=== PATIENT | male | born 1945 | race Caucasian/White ===

== ENCOUNTER → 2024-05-10 | Outpatient (CLI) | payer MEDICARE, BC, SELFPAY ==
[2024-05-10 16:03] LABS: Collection Type, Urine Clean Catch; Squamous Epithelial Cell,Urine 0 /hpf (0-5)
[2024-05-10 16:44] LABS: Bacteria,Urine 1+; Bilirubin,Urine Negative (Negative); Blood,Urine Trace (Negative); Color,Urine Lt-Yellow (Lt Yel-Yel); Glucose, Urine Negative (Negative); Ketones,Urine Negative (Negative); Leukocyte Esterase,Urine Positive (Negative); Nitrite,Urine Negative (Negative); Protein,Urine Negative (Neg - Trace); RBC,Urine 22 /hpf (0-3); Urobilinogen,Urine Negative mg/dL (0.0-1.0); WBC,Urine 795 /hpf (0-5)
[2024-05-10 17:27] LABS: Clarity,Urine Hazy (Clear/Hazy)
== END | disposition home or self-care (01) ==
LOC: SLDO 15:58
PROVIDERS: PCP Nurse Practitioner Family; Referring Provider Nurse Practitioner Family; Visit Provider Nurse Practitioner Family
DX: N30.00 Acute cystitis without hematuria (principal); N41.0 Acute prostatitis
CPT/HCPCS: 81001; 87086

== ENCOUNTER → 2024-05-25 | Outpatient (CLI) | payer MEDICARE, BC, SELFPAY ==
[2024-05-25 14:27] LABS: Ferritin 87 ng/mL (10.5-307.3)
[2024-05-25 14:36] LABS: Iron 71 mcg/dL (65-175)
== END | disposition home or self-care (01) ==
LOC: COPL 12:00
PROVIDERS: PCP Physician Assistant; Referring Provider Physician Assistant; Visit Provider Physician Assistant
DX: D64.9 Anemia, unspecified (principal)
CPT/HCPCS: 36415; 82728; 83540; 85025

== ENCOUNTER → 2024-05-26 | Outpatient (CLI) | payer MEDICARE, BC, SELFPAY ==
[2024-05-26 15:35] LABS: Basophils # (Auto) 0.1 Thou/mm3 (0.0-0.2); Basophils % (Auto) 1 % (0-2.5); Eosinophils # (Auto) 0.4 Thou/mm3 (0.0-0.5); Eosinophils % (Auto) 6 % (0-10); Hematocrit 35.6 % (41.0-53.0); Hemoglobin 11.6 g/dL (13.5-16.0); Immature Granulocytes % (Auto) 0 % (0-0); Immature Granulocytes Auto 0.02 Thou/mm3 (0.00-0.00); Lymphocytes % (Auto) 15 % (10-50); Mean Corpuscular HGB Conc 32.6 g/dl (31.0-37.0); Mean Corpuscular Hemoglobin 29.3 pg (25.0-35.0); Mean Corpuscular Volume 90 fL (80-100); Monocytes # (Auto) 0.6 Thou/mm3 (0.0-0.8); Monocytes % (Auto) 9 % (0-12); Neutrophils # (Auto) 4.5 Thou/mm3 (1.8-7.7); Neutrophils % (Auto) 69 % (37-80); Nucleated Red Blood Cell % 0 /100 WBC (0); Platelet Count 212 Thou/mm3 (140-440); RDW Standard Deviation 46.3 fL (35.1-43.9); Red Blood Count 3.96 Miln/mm3 (4.50-5.90); White Blood Count 6.6 Thou/mm3 (3.8-10.6)
[2024-05-26 16:37] LABS: Path Review Blood Smear Sent to Pathologist
== END | disposition home or self-care (01) ==
LOC: COPL 14:08
PROVIDERS: PCP Family Medicine; Referring Provider Physician Assistant; Visit Provider Physician Assistant
DX: D64.9 Anemia, unspecified (principal)
CPT/HCPCS: 36415; 85025

== ENCOUNTER → 2024-06-06 | Outpatient (CLI) | payer MEDICARE, BC, SELFPAY ==
[2024-06-06 15:57] LABS: Collection Type, Urine Clean Catch; Squamous Epithelial Cell,Urine 0 /hpf (0-5)
[2024-06-06 17:58] LABS: Bilirubin,Urine Negative (Negative); Blood,Urine Negative (Negative); Clarity,Urine Clear (Clear/Hazy); Color,Urine Colorless (Lt Yel-Yel); Glucose, Urine Negative (Negative); Ketones,Urine Negative (Negative); Leukocyte Esterase,Urine Negative (Negative); Nitrite,Urine Negative (Negative); PH,Urine 7.5 (5.0-7.0); Protein,Urine Negative (Neg - Trace); RBC,Urine < 1 /hpf (0-3); Specific Gravity,Urine 1.007 (1.001-1.035); Urobilinogen,Urine Negative mg/dL (0.0-1.0); WBC,Urine 1 /hpf (0-5)
== END | disposition home or self-care (01) ==
LOC: SLDO 15:37
PROVIDERS: PCP Physician Assistant; Referring Provider Physician Assistant; Visit Provider Physician Assistant
DX: N41.0 Acute prostatitis (principal)
CPT/HCPCS: 81001; 87086

== ENCOUNTER 2024-06-30 07:20 | Day surgery (SDC) | payer MEDICARE, BC, SELFPAY ==
[2024-06-30] VITALS (8 sets, daily range): BP systolic 96–143; BP diastolic 69–90; PULSE 45–67; RESP 12–18; TEMP 36.2–36.7; O2SAT 95–98; BMI 23.0
[2024-06-30] MEDS: DiphenhydrAMINE INJ 50 MG/ML VIAL 25 MG IV (09:15)
[2024-06-30] MEDS: MIDAZOLAM INJ 1 MG/ML VIAL 2 ML (ASD USE ONLY) 2 MG IV (09:18)
[2024-06-30] MEDS: fentaNYL CIT INJ 50 mCg/ML AMP 2ML (ASD USE ONLY) IV (09:18)
[2024-06-30] MEDS: ONDANSETRON INJ 2 MG/ML INJ 2 ML 4 MG IV (09:23)
--- NOTE | 2024-06-30 10:18 | SUR.PHASEII ---
0932: Pt received for recovery. Report from Lynne HORAN. Pt groggy. Is arousable but unable to remain awake. Resp even, unlabored. VS stable. No c/o pain, discomfort. 1000: Pt more alert. Sitting up tolerating po fluids with no difficulty swallowing and no n/v. 1005: Resp even, unlabored. VS stable. Denies pain. Assisted to restroom. Ambulation steady. 1021: Pt dressed and in transport chair. Pt and stated understanding of discharge instructions. Pt discharged from [facility] in stable condition.
== END 2024-06-30 10:21 | disposition home or self-care (01) ==
PROVIDERS: PCP Family Medicine; Referring Provider Specialist; Visit Provider Specialist
PROC: 0DBE8ZX Excision of Large Intestine, Via Natural or Artificial Opening Endoscopic, Diagnostic (ICD-10-PCS; CPT 45380; principal; 2024-06-30 08:30)
DX: D12.8 Benign neoplasm of rectum (principal); K62.89 Other specified diseases of anus and rectum
CPT/HCPCS: 45380; A4649; J1200; J2250; J2405; J3010

== ENCOUNTER → 2024-12-14 | Outpatient (CLI) | payer MEDICARE, BC, SELFPAY ==
[2024-12-14 14:35] LABS: Collection Type, Urine Clean Catch; Squamous Epithelial Cell,Urine 0 /hpf (0-5)
[2024-12-14 16:39] LABS: Bacteria,Urine 2+; Bilirubin,Urine Negative (Negative); Blood,Urine 2+ (Negative); Color,Urine Yellow (Lt Yel-Yel); Glucose, Urine Negative (Negative); Ketones,Urine Negative (Negative); Leukocyte Esterase,Urine Positive (Negative); Nitrite,Urine Positive (Negative); PH,Urine 5.5 (5.0-7.0); Protein,Urine 1+ (Neg - Trace); RBC,Urine 54 /hpf (0-3); Specific Gravity,Urine 1.016 (1.001-1.035); Urobilinogen,Urine Negative mg/dL (0.0-1.0); WBC,Urine 1266 /hpf (0-5)
[2024-12-14 17:13] LABS: Clarity,Urine Cloudy (Clear/Hazy)
== END | disposition home or self-care (01) ==
LOC: SLDO 14:25
PROVIDERS: PCP Family Medicine; Referring Provider Nurse Practitioner Family; Visit Provider Nurse Practitioner Family
DX: N39.0 Urinary tract infection, site not specified (principal)
CPT/HCPCS: 81001; 87077; 87086; 87186

== ENCOUNTER 2024-12-27 14:13 | Inpatient (IN) | payer MEDICARE, BC, SELFPAY ==
[2024-12-27 14:53] VITALS: BP 92/60; PULSE 137; RESP 18; TEMP 38.2; O2SAT 96; BMI 23.2
--- NOTE | 2024-12-27 15:09 | PC.NURSE ---
dr. torres informed about FSBS down trending and now 83. No new orders
--- NOTE | 2024-12-27 15:11 | EDNOTE_ITS ---
<Statement entered by Lu Anderson MD - 12/29/24 18:57> As co-signing physician, I was present and available for consult prn. I concur with the plan and care as documented by the midlevel provider. ED Male Genitalurinary RME/HPI General Chief complaint: Urogenital-Male Stated complaint: UTI, fever, vomiting Time Seen by Provider: 12/27/24 14:57 Arrival date/time: 12/27/24 14:13 RME / HPI RME / HPI Narrative: 79-year-old male patient with no significant medical history, came in for evaluation regarding fever. Patient is having fever on and off for the last few days, and this morning was having violent chills according to him. Patient was also noted to be diaphoretic. Patient is being having problem with UTI, already feeling this 1 status of antibiotic last week, and was currently started on a n ew antibiotic 3 days ago. Patient also complained of nonproductive cough, chest pain and coughing. Denies any other complaints sepsis alert was initiated right away due to fever and tachycardia. Related Data Home Medications ?Medication ?Instructions ?Recorded ?Confirmed No Known Home Medications 06/30/2406/05 Allergies Allergy/AdvReac Type Severity Reaction Status Date / Time No Known Allergies Allergy Verified 12/27/24 14:19 Review of Systems Review of Systems Narrative Review of Systems: Review of system reviewed and within normal limits except mentioned in HPI ED Exam Narrative Physical exam: VITAL SIGNS: Reviewed. GENERAL APPEARANCE: Alert and interactive, follows commands, no acute distress, HEAD AND FACE: Non-traumatic. ENT: PERRL, pink conjunctivitis, eyelid no trauma, Mucous membrane moist. NECK: Supple, nontender, no nuchal rigidity. CHEST: No tenderness, no crepitus, no paradoxical movement, no retractions. LUNGS: Clear, well ventilated, symmetric, no rales, no wheezing, no ronchi, no stridor, good breath sounds bilaterally. HEART: Regular rate, regular rhythm, no murmur, no gallops. ABDOMEN: Soft, positive bowel sounds, nondistended, no guarding, nontender, no rebound, no masses, RECTAL: Deferred. GENITAL: Deferred. NEUROLOGICAL: Gross motor function intact sensory function intact, Appropriate for age. MUSCULOSKELETAL: low back nontender, full range of motion. EXTREMITIES: Nontender, full range of motion. SKIN: Color pink, dry, no rash, no lacerations, no abrasions, no contusions. LYMPHATICS: Deferred. Course Quality Measures none Orders Category Date Time Status Admit to Inpatient Status Routine Admission 12/27/24 20:25 Active Patient Condition Routine Admission 12/27/24 20:25 Ordered Bladder Scan NEEDED Care 12/27/24 20:33 Active COVID-19 Screening Questionnaire NOW Care 12/27/24 19:51 Active Continuous Pulse Oximetry NOW Care 12/27/24 20:25 Completed Decision to Admit X1 Care 12/27/24 19:51 Completed Flu & Pneumonia Vaccine Screen ONCE Care 12/27/24 20:27 Active In and Out Catheter X1 Care 12/27/24 20:25 Active Insert IV NOW Care 12/27/24 15:05 Active Notify provider NEEDED Care 12/27/24 20:25 Active Sequential Compression Device QSHIFT Care 12/27/24 20:27 Active Straight [In and Out Catheter] NEEDED Care 12/27/24 20:33 Active Strain urine for calculus ONCE Care 12/27/24 20:36 Active Diet Regular Diet 12/28/[address] abdomen pelvis wo con Stat Exams 12/27/24 15:12 Completed XR chest 1V Stat Exams 12/27/24 15:12 Completed Blood Culture (Lab) Stat Lab 12/27/24 15:29 Received CBC AM DRAW Lab 12/28/24 05:00 Ordered CBC AM DRAW Lab 12/29/24 05:00 Ordered CBC AM DRAW Lab 12/30/24 05:00 Ordered CBC Stat Lab 12/27/24 15:34 Completed COVID-19 Antigen (In-House) Stat Lab 12/27/24 Ordered Comprehensive Metabolic Panel AM DRAW Lab 12/28/24 05:00 Ordered Comprehensive Metabolic Panel AM DRAW Lab 12/29/24 05:00 Ordered Comprehensive Metabolic Panel AM DRAW Lab 12/30/24 05:00 Ordered Comprehensive Metabolic Panel Stat Lab 12/27/24 15:34 Completed Lactate (Lactic Acid) Stat Lab 12/27/24 15:34 Completed Lipase Stat Lab 12/27/24 15:34 Completed Magnesium AM DRAW Lab 12/28/24 05:00 Ordered Magnesium AM DRAW Lab 12/29/24 05:00 Ordered Magnesium AM DRAW Lab 12/30/24 05:00 Ordered Phosphorous AM DRAW Lab 12/28/24 05:00 Ordered Phosphorous AM DRAW Lab 12/29/24 05:00 Ordered Phosphorous AM DRAW Lab 12/30/24 05:00 Ordered Procalcitonin Stat Lab 12/27/24 15:34 Completed Urinalysis Stat Lab 12/27/24 16:10 Completed Urine Culture Stat Lab 12/27/24 16:10 Received Acetaminophen Tab [Tylenol ES Tab] Med 12/27/24 15:12 Discontinued 1,000 mg PO X1 ONE Acetaminophen Tab [Tylenol Tab] Med 12/27/24 20:27 Active 1,000 mg PO Q6H PRN Acetaminophen Tab [Tylenol Tab] Med 12/27/24 20:27 Active 650 mg PO Q6H PRN Ondansetron Inj [Zofran Inj] Med 12/27/24 20:27 Active 4 mg IVP Q6H PRN Piper/Tazo 3.375 gm Premix [Zosyn] Med 12/28/24 06:00 Active 3.375 gm in 50 ml IV Q8HR Piper/Tazo 3.375 gm Premix [Zosyn] Med 12/27/24 20:45 Active 3.375 gm in 50 ml IV X1 Ringers Lactated 1000 ml [Lactated Ringers] 1,000 ml Med 12/27/24 20:30 Active IV 125 mls/hr Sodium Chloride 0.9% 1000 ml [Ns] 1,000 ml Med 12/27/24 15:04 Discontinued IV 999 mls/hr Tamsulosin HCl [Flomax] Med 12/28/24 09:00 Active 0.4 mg PO QDAY cefTRIAXone/D5w 1gm IV premix [Rocephin/D5w 1gm IV Med 12/27/24 15:14 Dis continued premix] 1 gm in 50 ml IV X1 Code Status Routine Oth 12/27/24 20:25 Ordered Oxygen Delivery DAILY RT 12/27/24 20:26 Active Vital Signs Vital signs: Vital Signs Temperature 100.7 F H 12/27/24 14:53 Pulse Rate 137 H 12/27/24 14:53 Respiratory Rate 18 12/27/24 14:53 Blood Pressure 92/60 12/27/24 14:53 Pulse Oximetry (%) 96 12/27/24 14:53 Oxygen Delivery Method Room Air 12/27/24 14:53 Urogenital - Male MDM Narrative MDM Narrative:: 79-year-old male patient with no significant medical history, came in for evaluation regarding fever. Patient is having fever on and off for the last few days, and this morning was having violent chills according to him. Patient was also noted to be diaphoretic. Patient is being having problem with UTI, already feeling this 1 status of antibiotic last week, and was currently started on a new antibiotic 3 days ago. Patient also complained of nonproductive cough, chest pain and coughing. Denies any other complaints sepsis alert was initiated right away due to fever and tachycardia. Sepsis alert was initiated right away. Laboratory workup significant for UTI. Slight leukocytosis, creatinine 1.4 Pro-Bryce 0.97 chest x-ray came back unremarkable. CT scan of the abdomen pelvis showed Bilateral nonobstructing renal calculi Left urinary tract infection, cystitis pattern Patient received IV fluids, IV ceftriaxone. Patient is to be admitted for failed antibiotic treatment and sepsis secondary to UTI Patient data External records reviewed:: None Clinical information provided by:: patient and family Social determinants that could affect healthcare access:: none Patient has the following chronic illnesses:: History of chronic self-catheterization due to BPH How is presenting disease/condition affected by chronic disease/condition?: exacerbated by Evaluation data The following diagnostics were reviewed and interpreted by me:: lab results and radiology exam(s) Lab and/or radiology exams considered but not ordered:: None Interpretation Summary: See results [facility] Medications / Prescriptions Medications or Prescriptions considered but not ordered:: None Medication administrations:: Medication Administration History Acetaminophen (Acetaminophen 325 Mg Tablet) 650 mg PO Q6H PRN PRN Reason: Fever >100.4 Stop: 01/26/25 20:26 Acetaminophen (Acetaminophen 325 Mg Tablet) 1,000 mg PO Q6H PRN PRN Reason: PAIN SCALE 1-3 (mild Stop: 01/26/25 20:26 Lactated Ringer's (Lactated Ringers) 1,000 mls @ 125 mls/hr IV .Q8H KRYSTIN Stop: 12/28/24 04:29 Piperacillin/Tazobactam/Dextrose (Zosyn) 3.375 gm in 50 mls @ 12.5 mls/hr IV Q8HR KRYSTIN Stop: 01/04/25 05:59 Piperacillin/Tazobactam/Dextrose (Zosyn) 3.375 gm in 50 mls @ 100 mls/hr IV X1 ONE Stop: 12/27/24 21:14 Ondansetron HCl (Ondansetron Inj 2 Mg/Ml Inj 2 Ml) 4 mg IVP Q6H PRN; Protocol PRN Reason: NAUSEA OR VOMITING Stop: 01/26/25 20:26 Tamsulosin HCl (Tamsulosin Hcl 0.4 Mg Capsule) 0.4 mg PO QDAY KRYSTIN Stop: 01/27/25 08:59 Discontinued Medications Acetaminophen (Acetaminophen 500 Mg Tablet) 1,000 mg PO X1 ONE Stop: 12/27/24 15:13 Last Admin: 12/27/24 16:06 Dose: 1,000 mg Documented By: Sodium Chloride (Ns) 1,000 mls @ 999 mls/hr IV .Q1H1M ONE Stop: 12/27/24 16:04 Last Infusion: 12/27/24 20:30 Dose: Infused Documented By: Admin: 12/27/24 19:29 Dose: 999 mls/hr Documented By: EF Ceftriaxone Sodium/Dextrose (Rocephin/D5w 1gm Iv Premix) 1 gm in 50 mls @ 100 mls/hr IV X1 ONE Stop: 12/27/24 15:43 Last Infusion: 12/27/24 20:00 Dose: Infused Documented By: Admin: 12/27/24 19:30 Dose: 100 mls/hr Documented By: EF Ceftriaxone IM, Tylenol and IV fluids Consultations Consultation(s) initiated? (list below): No Diagnosis Urogenital Male Differential Diagnosis: urinary tract infection and other (Sepsis secondary to UTI) Most likely diagnosis given after review of the tests above:: Sepsis secondary to UTI, failed antibiotic treatment Admission Indicated Admission indicated?: indicated Admission Request Was there a request for admission?: Yes Admission Attestation Admission request attestation: Discussed case with Hospitalist service regarding admission. Discussed patients ED course, exam findings, labs, and radiology results. The Hospitalist [agrees] to accept the patient for admission. Disposition Plan Disposition Plan: Admit Discharge Plan Plan Patient Disposition: Admit Acute Care w/in Hospital Discharge Disposition comment: stable Prescriptions/Referrals Prescriptions/Med Rec: No Action No Known Home Medications Referrals: Janeth Meadows MD [Primary Care Provider] - In 1 week Problem List Clinical Impression: Sepsis, Urinary tract infection Patient/Caregiver Discharge Instructions Print Language: [place] Stand Alone Forms: Paty Award Info., Patient Portal Info Letter
--- NOTE | 2024-12-27 15:12 | XR_ITS ---
Examination: CT abdomen and pelvis without contrast. Coronal 3-D reconstructions. Sagittal 2-D reconstructions. Date and time of exam:December 27, 2024 1520 hours Comparison May 11, 2021 INDICATIONS: Lower abdominal pain fever chills beginning 2 days ago CTDI: vol (mGy): 6.67 DLP: (mGycm): 125 Technique: Axial images of the abdomen have been obtained, 3 mm slice thickness Intravenous contrast material has not been administered. Low dose protocols were performed. One or more of the following dose reduction techniques were used; automated exposure control, adjustment of the mA and/or KV according to patient size, use of iterative reconstruction technique. Findings: Mild pneumonia right base No focal liver or splenic lesions No gallstones No pancreatic or adrenal mass 1 to 3 mm bilateral renal calculi Minimal thickening of the left pelvicalyceal system and proximal left ureter, no ureteral calculi No bowel obstruction Aorta normal size No pericecal inflammatory change Bladder wall shows irregular thickening up to 5 mm AP prostate dimension 5 cm IMPRESSION: Bilateral nonobstructing renal calculi Left urinary tract infection, cystitis pattern
--- NOTE | 2024-12-27 15:12 | XR_ITS ---
Examination: PA chest single view TECHNIQUE: Upright PA chest single view Date and time: December 27, 2024 1523 hours Comparison May 10, 2021 INDICATIONS: Fever coughing chest pain today. FINDINGS: Mild prominence left ventricle No lobar pneumonia or pulmonary edema Intact osseous structures old deformity left clavicle IMPRESSION: No pneumonia or pulmonary edema
[2024-12-27 15:39] LABS: Lactate (Lactic Acid) 1.2 mMol/L (0.4-2.0)
[2024-12-27 15:41] LABS: Basophils % (Auto) 0 % (0-2.5); Eosinophils % (Auto) 0 % (0-10); Hematocrit 41.2 % (41.0-53.0); Hemoglobin 13.9 g/dL (13.5-16.0); Immature Granulocytes % (Auto) 0 % (0-0); Immature Granulocytes Auto 0.03 Thou/mm3 (0.00-0.00); Lymphocytes # (Auto) 0.7 Thou/mm3 (1.0-4.8); Lymphocytes % (Auto) 6 % (10-50); Mean Corpuscular HGB Conc 33.7 g/dl (31.0-37.0); Mean Corpuscular Hemoglobin 27.4 pg (25.0-35.0); Mean Corpuscular Volume 81 fL (80-100); Monocytes # (Auto) 1.1 Thou/mm3 (0.0-0.8); Monocytes % (Auto) 10 % (0-12); Neutrophils # (Auto) 9.1 Thou/mm3 (1.8-7.7); Neutrophils % (Auto) 83 % (37-80); Nucleated Red Blood Cell % 0 /100 WBC (0); Platelet Count 255 Thou/mm3 (140-440); RDW Standard Deviation 41.9 fL (35.1-43.9); Red Blood Count 5.08 Miln/mm3 (4.50-5.90); White Blood Count 10.9 Thou/mm3 (3.8-10.6)
[2024-12-27 16:06] VITALS: TEMP 38.2
[2024-12-27] MEDS: ACETAMINOPHEN 500 MG TABLET 1000 MG PO (16:06)
[2024-12-27 16:07] LABS: Alanine Aminotransferase 15 U/L (10-49); Albumin, Serum 3.8 gm/dL (3.4-4.8); Albumin/Globulin Ratio 1.4 (1.2-2.2); Alkaline Phosphatase 65 U/L (46-116); Anion Gap 7 (7-16); Aspartate Amino Transferase 17 U/L (0-34); BUN/Creatinine Ratio 11 Ratio (12-20); Bilirubin,Total 0.6 mg/dL (0.3-1.2); Blood Urea Nitrogen 16 mg/dL (9-23); Calcium 8.9 mg/dL (8.3-10.6); Calcium (Corrected) 9.1 mg/dL (8.5-10.1); Carbon Dioxide 26.8 mMol/L (20.0-31.0); Chloride 104 mMol/L (98-107); Creatinine (Component) 1.4 mg/dL (0.6-1.3); Estimated Creatinine Clearance 46.3 mL/min (>60); Globulin 2.8 gm/dL (2.3-3.5); Glucose 124 mg/dL (74-106); Lipase 35 U/L (12-53); Osmolality,Calculated 277 (275-295); Potassium 4.3 mMol/L (3.4-5.1); Procalcitonin 0.97 ng/ml (0.0-0.49); Sodium 138 mMol/L (136-145); Total Protein 6.6 gm/dL (5.7-8.2); eGFR 51 See Note
[2024-12-27 16:15] LABS: Collection Type, Urine Clean Catch; Squamous Epithelial Cell,Urine 0 /hpf (0-5)
[2024-12-27 16:24] LABS: Bacteria,Urine Rare; Bilirubin,Urine Negative (Negative); Blood,Urine Negative (Negative); Color,Urine Yellow (Lt Yel-Yel); Glucose, Urine Negative (Negative); Ketones,Urine Negative (Negative); Leukocyte Esterase,Urine Positive (Negative); Nitrite,Urine Negative (Negative); Protein,Urine Trace (Neg - Trace); RBC,Urine 7 /hpf (0-3); Specific Gravity,Urine 1.013 (1.001-1.035); Urobilinogen,Urine Negative mg/dL (0.0-1.0); WBC,Urine 138 /hpf (0-5)
[2024-12-27 17:00] LABS: Clarity,Urine Hazy (Clear/Hazy)
[2024-12-27 19:22] VITALS: BP 109/79; PULSE 95; RESP 17; TEMP 36.7; O2SAT 96
[2024-12-27] MEDS: SODIUM CHLORIDE 0.9% 1000 ML 1,000 ML 999 ML IV (19:29)
[2024-12-27 19:30] VITALS: TEMP 36.6
[2024-12-27] MEDS: cefTRIAXone/D5w 1gm IV premix 1 GM/50 ML BAG IV (19:30)
--- NOTE | 2024-12-27 20:37 | PD.RESHP ---
Documentation for date of: 12/27/24 HPI History of Present Illness Chief complaint: UTI History of present illness: 79-year-old male with no past medical history who presents to the ED due to fevers and chills. Patient states that around 2 weeks ago he started developing low-grade fevers and burning sensation with urination and urinary hesitancy went to his PCP and they gave him a 1 week course of antibiotics. After that patient states burning sensation and urinary symptoms resolved however patient continued to felt weak and continued to develop fevers and went us saw his PCP again yesterday and was given Bactrim. He took 1 dose this morning and said he continued to develop fevers and chills and decided to come to the ER. Patient attributes his fevers and chills now to that 1 dose he took of Bactrim was also worried about an allergic reaction as prior to taking the Bactrim he states his fevers had improved somewhat. Patient also endorses that he is incontinent and usually does straight In-N-Out catheterization at home. He denies any abdominal pain or flank pain. At this time patient denies headache, blurry vision, nausea, vomiting, diarrhea, abdominal pain, flank pain shortness of breath, chest pain. ED course: ED vitals: BP 92/60, HR 137, temperature 100.7 ?F, saturating 96% on room air ED labs: Mild leukocytosis, creatinine 1.4, glucose 124, procalcitonin 0.97, UA shows positive leukocyte esterase, 138 with WBCs, 7 RBCs, rare bacteria CT abdomen pelvis shows bilateral nonobstructing renal calculi 1-3 mm, left urinary tract infection, cystitis pattern Chest x-ray shows no pneumonia or pulmonary edema, in the ED patient received Rocephin, 1 L NS bolus, Zofran, Tylenol PMHx: As above SX Hx: None Social Hx: Denies cigarette use, denies alcohol use, denies illicit substances although patient does endorse taking THC Gummies every 1 to 2 days FH X: Unknown Review of Systems Review of Systems Systems Reviewed: All systems reviewed, normal except as documented Narrative Review of Systems: All 12 systems reviewed and found negative unless otherwise stated in the HPI. Exam Vital Signs Temp Pulse Resp BP Pulse Ox O2 Del Method 98 F 95 17 109/79 96 Room Air 12/27/24 19:30 12/27/24 19:22 12/27/24 19:22 12/27/24 19:22 12/27/24 19:22 12/27/24 19:22 Narrative Exam Physical Exam GENERAL: NAD, AAOx3 HEENT: Moist mucosa. Eyes open, symmetrical, & clear CARDIO: Heart RRR, no obvious murmurs PULM: No noted coughing/dyspnea CTA B/L, no R/W/R GI: Abdomen soft, distended, no pain on palpation. BSx4 (-)CVA tenderness SKIN/MSK/EXT: No wounds/rashes/edema/amputations, no pain on palpation. Pedal pulses present B/L NEURO: AAOx3, no focal neuro deficits, able to move all 4 extremities Results: Labs 12/27/24 15:34 12/27/24 15:34 Labs: Short CBC 12/27/24 Range/Units 15:34 WBC 10.9 H (3.8-10.6) Thou/mm3 Hgb 13.9 (13.5-16.0) g/dL Hct 41.2 (41.0-53.0) % Plt Count 255 (140-440) Thou/mm3 BMP 12/27/24 15:34 Sodium 138 Potassium 4.3 Chloride 104 Carbon Dioxide 26.8 BUN 16 Creatinine 1.4 H Glucose 124 H Calcium 8.9 Liver Function 12/27/24 Range/Units 15:34 Total Bilirubin 0.6 (0.3-1.2) mg/dL AST 17 (0-34) U/L ALT 15 (10-49) U/L Alkaline Phosphatase 65 (46-116) U/L Albumin 3.8 (3.4-4.8) gm/dL Urine 12/27/24 Range/Units 16:10 Urine Color Yellow (Lt Yel-Yel) Urine Clarity Hazy (Clear/Hazy) Urine pH 8.0 H (5.0-7.0) Ur Specific [place] 1.013 (1.001-1.035) Urine Protein Trace (Neg - Trace) Urine Glucose (UA) Negative (Negative) Quality Measures Quality Measures none Advance care planning discussed with:: patient Medications Home Medications and Allergies Home Medications ?Medication ?Instructions ?Recorded ?Confirmed ?Type No Known Home Medications 06/30/24 06/30/24 History Allergies Allergy/AdvReac Type Severity Reaction Status Date / Time No Known Allergies Allergy Verified 12/27/24 14:19 Visit Medications Acetaminophen (Acetaminophen 325 Mg Tablet) 650 mg PO Q6H PRN PRN Reason: Fever >100.4 Stop: 01/26/25 20:26 Acetaminophen (Acetaminophen 325 Mg Tablet) 1,000 mg PO Q6H PRN PRN Reason: PAIN SCALE 1-3 (mild Stop: 01/26/25 20:26 Lactated Ringer's (Lactated Ringers) 1,000 mls @ 125 mls/hr IV .Q8H KRYSTIN Stop: 12/28/24 04:29 Piperacillin/Tazobactam/Dextrose (Zosyn) 50 mls @ 100 mls/hr IV Q8HR KRYSTIN Stop: 01/03/25 20:32 Ondansetron HCl (Ondansetron Inj 2 Mg/Ml Inj 2 Ml) 4 mg IVP Q6H PRN; Protocol PRN Reason: NAUSEA OR VOMITING Stop: 01/26/25 20:26 Discontinued Medications Acetaminophen (Acetaminophen 500 Mg Tablet) 1,000 mg PO X1 ONE Stop: 12/27/24 15:13 Last Admin: 12/27/24 16:06 Dose: 1,000 mg Sodium Chloride (Ns) 1,000 mls @ 999 mls/hr IV .Q1H1M ONE Stop: 12/27/24 16:04 Last Admin: 12/27/24 19:29 Dose: 999 mls/hr Ceftriaxone Sodium/Dextrose (Rocephin/D5w 1gm Iv Premix) 1 gm in 50 mls @ 100 mls/hr IV X1 ONE Stop: 12/27/24 15:43 Last Admin: 12/27/24 19:30 Dose: 100 mls/hr Assessment & Plan Plan 79-year-old male with past medical history as stated above who presented to the ED due to fevers and chills. Patient will be admitted for management of UTI after failing outpatient therapy. #Acute complicated urinary tract infection Patient had approximately 2 weeks ago burning sensation with urination went to his PCP was given a 1 week course of antibiotic therapy which she completed however he continued to present with fevers and went to his PCP again and was given another course of antibiotics took only 1 dose but continued to present with fever so decided to come to the ER. He denies any flank pain, urinary symptoms at this time,urinary urgency or frequency, difficulty urinating, penile pain, or testicular pain, hematuria and on physical exam has negative CVA tenderness or abdominal pain Patient attributes his fevers and chills now to that 1 dose he took of Bactrim he was also worried about an allergic reaction as prior to taking the Bactrim he states his fevers had been improving somewhat Patient states at home he straight caths himself as he states he is incontinent UA positive for UTI, CT abdomen pelvis shows Bilateral nonobstructing renal calculi 1-3mm, Left urinary tract infection, cystitis pattern Stones are less than 5 mm and are nonobstructing, they should spontaneously pass, per up-to-date ? On Zosyn (12/27?) ? Follow-up blood cultures ? Follow-up urine cultures ? IV fluids lactated Ringer's @ 125 cc/h ? Pain control ? Tamsulosin ? Bladder scans as needed as well as straight In-N-Out caths #Acute Kidney injury Baseline creatinine ~0.8?1.0, current creatinine 1.4 ? on IVF ? Avoid nephrotoxins ? Renally dose medications Health Maintenance: Disposition: MedSurg, on IV antibiotics Fluids: LR Feeding: Regular (vegetarian) Thrombo prophylaxis: SCDs Gastric Ulcer prophylaxis: Not indicated CODE STATUS: DNR Case discussed with my attending Dr. Luis Fernando Hudson MD PGY-1 Disclaimer: Despite multiple revisions, due to the dictation software being used, the document bellow may not be free of grammatical errors including phonetic/typographic errors. However, this does not deter from our commitment to providing health care in the patient's best interest in mind. Attending Provider Attestation/Addendum I discussed with and supervised the resident physician who took care of this patient. I agree with the assessment and plan as above. Patient admitted for fever chills, urinary symptoms. The patient has nonobstructing ureteral stones. Previous urine culture grew E. coli. Patient will be admitted for antibiotic treatment. Check culture results.
[2024-12-27 20:53] VITALS: BP 122/90; PULSE 85; PULSE 91; RESP 100; RESP 16; RESP 19; O2SAT 100
[2024-12-27] MEDS: PIPER/TAZO 3.375 GM PREMIX 3.375 GM/50 ML BAG IV (21:02)
[2024-12-27] MEDS: TAMSULOSIN HCL 0.4 MG CAPSULE PO (21:26)
[2024-12-27] MEDS: RINGERS LACTATED 1000 ML 1,000 ML 125 ML IV (21:26)
[2024-12-27 21:37] LABS: COVID-19 Antigen (In-House) Negative (Negative)
[2024-12-27 22:48] VITALS: BMI 23.8
[2024-12-28] VITALS (12 sets, daily range): BP systolic 107–127; BP diastolic 79–98; PULSE 79–111; RESP 16–97; TEMP 36.1–37; O2SAT 94–95
[2024-12-28] MEDS: PIPER/TAZO 3.375 GM PREMIX 3.375 GM/50 ML BAG IV ×3 (05:57→21:10)
[2024-12-28 06:02] LABS: Basophils % (Auto) 1 % (0-2.5); Eosinophils # (Auto) 0.1 Thou/mm3 (0.0-0.5); Eosinophils % (Auto) 2 % (0-10); Hematocrit 36.5 % (41.0-53.0); Hemoglobin 12.4 g/dL (13.5-16.0); Immature Granulocytes % (Auto) 0 % (0-0); Immature Granulocytes Auto 0.02 Thou/mm3 (0.00-0.00); Lymphocytes # (Auto) 0.7 Thou/mm3 (1.0-4.8); Lymphocytes % (Auto) 9 % (10-50); Mean Corpuscular Hemoglobin 27.9 pg (25.0-35.0); Mean Corpuscular Volume 82 fL (80-100); Monocytes % (Auto) 14 % (0-12); Neutrophils # (Auto) 5.3 Thou/mm3 (1.8-7.7); Neutrophils % (Auto) 74 % (37-80); Nucleated Red Blood Cell % 0 /100 WBC (0); Platelet Count 240 Thou/mm3 (140-440); RDW Standard Deviation 42.5 fL (35.1-43.9); Red Blood Count 4.45 Miln/mm3 (4.50-5.90); White Blood Count 7.1 Thou/mm3 (3.8-10.6)
[2024-12-28 06:29] LABS: Alanine Aminotransferase 11 U/L (10-49); Albumin, Serum 3.2 gm/dL (3.4-4.8); Albumin/Globulin Ratio 1.3 (1.2-2.2); Alkaline Phosphatase 57 U/L (46-116); Anion Gap 7 (7-16); Aspartate Amino Transferase 16 U/L (0-34); BUN/Creatinine Ratio 12 Ratio (12-20); Bilirubin,Total 0.3 mg/dL (0.3-1.2); Blood Urea Nitrogen 12 mg/dL (9-23); Calcium 7.9 mg/dL (8.3-10.6); Calcium (Corrected) 8.5 mg/dL (8.5-10.1); Carbon Dioxide 23.3 mMol/L (20.0-31.0); Chloride 111 mMol/L (98-107); Estimated Creatinine Clearance 64.8 mL/min (>60); Globulin 2.4 gm/dL (2.3-3.5); Glucose 105 mg/dL (74-106); Magnesium 1.8 mg/dL (1.6-2.6); Osmolality,Calculated 280 (275-295); Phosphorous 2.2 mg/dL (2.4-5.1); Potassium 3.8 mMol/L (3.4-5.1); Sodium 141 mMol/L (136-145); Total Protein 5.6 gm/dL (5.7-8.2); eGFR > 60 See Note
--- NOTE | 2024-12-28 07:58 | EKG_ITS ---
[facility] Test Date: 2024-12-28 Pat Name: SACHIN MANN [facility] Contract Lead: DELBERT : 1945 Requested By: Markos Calloway Order Number: [id number] Reading MD: Markos Calloway Measurements Intervals [place] Rate: 95 P: [place]: QRS: -53 QRSD: 119 T: 11 QT: 407 QTc: 513 Interpretive Statements ATRIAL FLUTTER/TACHYCARDIA LEFT ANTERIOR FASCICULAR BLOCK Compared to ECG 05/10/2021 21:55:26 Left anterior fascicular block now present Sinus bradycardia no longer present Intraventricular conduction delay no longer present /store/S0/[id number]
--- NOTE | 2024-12-28 09:24 | ESPR_ITS ---
<Statement entered by Jens Guzman MD - 12/29/24 07:17> I discussed with and supervised the digital intern physician involved in the care of this patient. Patient assessment and plan was discussed with entire medicine team, including my attending. I agree with the assessment and plan as documented by digital intern doctor. Patient care was discussed with my attending physician Dr. Caleb Guzman, PGY-2 Documentation for date of: 12/28/24 Subjective Subjective Interval history: No acute overnight events. Reports feeling well today. Denies fever, chills, headaches, chest pain, sob, cough, GI or urinary symptoms. Tachycardic on exam this AM. EKG ordered showing atrial-flutter with HR 18. He was upgraded to TELE for close monitoring. Cardiology Dr. Hernandez was consulted who recommended starting AMIODARONE drip protocols, and was initiated. Otherwise he stable, denied chest pain or palpitations or shortness of breath. Exam Vital Signs Temp Pulse Resp BP Pulse Ox O2 Del Method 98.6 F 82 19 107/88 H 95 Room Air 12/28/24 04:00 12/28/24 04:00 12/28/24 04:00 12/28/24 04:00 12/28/24 04:00 12/28/24 04:00 Narrative Exam GENERAL * Normal appearing adult male, NAD. HEENT * NCAT.?LIVE. Oral mucosa is moist. Patent Nares NECK * Supple, nontender, no JVD. CHEST * Tachycardic, ?irregular rhythm, no m/g/r * CTAB, no w/r/r, symmetrical expansion. ABDOMEN * Soft, flat, nontender. No guarding/rebound tenderness/masses. * Bowel sounds presents EXTREMITIES * No edema/cyanosis.? SKIN * Warm and dry, no jaundice/rashes. NEUROMUSCULAR * No lumbar or midline, no CVA, no paraspinal muscle spasm or tenderness. * Moves all 4 extremities well, with full ROM and good CSM. * MAURER x4, CN II-XII grossly intact. * No focal neurologic deficits. PSYCHIATRY * Normal mood and affect, cooperative, no SI or HI or hallucinations. Objective Labs 12/29/24 04:26 12/29/24 04:26 Labs: Laboratory Results - last 24 hr 12/27/24 12/27/24 12/27/24 15:34 16:10 21:00 WBC 10.9 H RBC 5.08 Hgb 13.9 Hct 41.2 MCV 81 MCH 27.4 MCHC 33.7 RDW Std Deviation 41.9 Plt Count 255 Neut % (Auto) 83 H Lymph % (Auto) 6 L [place] % (Auto) 10 Eos % (Auto) 0 Baso % (Auto) 0 Neut # (Auto) 9.1 H Lymph # (Auto) 0.7 L [place] # (Auto) 1.1 H Eos # (Auto) 0.0 Baso # (Auto) 0.0 Immature Gran # (Auto) 0.03 H Absolute Nucleated RBC 0.00 Immature Gran % 0 Nucleated RBC % 0 Sodium 138 Potassium 4.3 Chloride 104 Carbon Dioxide 26.8 Anion Gap 7 BUN 16 Creatinine 1.4 H Estim Creat Clear Calc 46.3 L eGFR 51 L BUN/Creatinine Ratio 11 L Glucose 124 H Calculated Osmolality 277 Lactic Acid 1.2 Calcium 8.9 Corrected Calcium 9.1 Phosphorus Magnesium Total Bilirubin 0.6 AST 17 ALT 15 Alkaline Phosphatase 65 Total Protein 6.6 Albumin 3.8 Globulin 2.8 Albumin/Globulin Ratio 1.4 Lipase 35 Procalcitonin 0.97 H Ur Collection Type Clean Catch Urine Color Yellow Urine Clarity Hazy Urine pH 8.0 H Ur Specific [place] 1.013 Urine Protein Trace Urine Glucose (UA) Negative Urine Ketones Negative Urine Blood Negative Urine Nitrite Negative Urine Bilirubin Negative Urine Urobilinogen (Auto) Negative Ur Leukocyte Esterase Positive Urine RBC 7 H Urine WBC 138 H Ur Squamous Epith Cells 0 Urine Bacteria Rare SARS-CoV-2 Ag (Rapid) Negative 12/28/24 04:39 WBC 7.1 RBC 4.45 L Hgb 12.4 L Hct 36.5 L MCV 82 MCH 27.9 MCHC 34.0 RDW Std Deviation 42.5 Plt Count 240 Neut % (Auto) 74 Lymph % (Auto) 9 L [place] % (Auto) 14 H Eos % (Auto) 2 Baso % (Auto) 1 Neut # (Auto) 5.3 Lymph # (Auto) 0.7 L [place] # (Auto) 1.0 H Eos # (Auto) 0.1 Baso # (Auto) 0.0 Immature Gran # (Auto) 0.02 H Absolute Nucleated RBC 0.00 Immature Gran % 0 Nucleated RBC % 0 Sodium 141 Potassium 3.8 D Chloride 111 H Carbon Dioxide 23.3 Anion Gap 7 BUN 12 Creatinine 1.0 Estim Creat Clear Calc 64.8 eGFR > 60 BUN/Creatinine Ratio 12 Glucose 105 Calculated Osmolality 280 Lactic Acid Calcium 7.9 L Corrected Calcium 8.5 Phosphorus 2.2 L Magnesium 1.8 Total Bilirubin 0.3 AST 16 ALT 11 Alkaline Phosphatase 57 Total Protein 5.6 L Albumin 3.2 L D Globulin 2.4 Albumin/Globulin Ratio 1.3 Lipase Procalcitonin Ur Collection Type Urine Color Urine Clarity Urine pH Ur Specific [place] Urine Protein Urine Glucose (UA) Urine Ketones Urine Blood Urine Nitrite Urine Bilirubin Urine Urobilinogen (Auto) Ur Leukocyte Esterase Urine RBC Urine WBC Ur Squamous Epith Cells Urine Bacteria SARS-CoV-2 Ag (Rapid) Quality Measures Quality Measures none Advance care planning discussed with:: patient Assessment & Plan Assessment Current Active Medications: Generic Name Dose Route Start Last Admin Trade Name Freq PRN Reason Stop Dose Admin Acetaminophen 650 mg 12/27/24 20:27 Acetaminophen 325 Mg Tablet PO 01/26/25 20:26 Q6H PRN Fever >100.4 Acetaminophen 1,000 mg 12/28/24 08:35 Acetaminophen 500 Mg Tablet PO 01/26/25 20:26 Q6H PRN PAIN SCALE 1-3 (mild Piperacillin/Tazobactam/Dextrose 3.375 gm in 50 mls @ 12.5 mls/hr 12/28/24 06:00 12/28/24 05:57 Zosyn IV 01/04/25 05:59 12.5 mls/hr Q8HR KRYSTIN Administration Potassium Phosphate 22.5 mmol/ 507.5 mls @ 82.778 mls/hr 12/28/24 07:56 Sodium Chloride IV 12/28/24 14:03 X1 ONE Amiodarone HCl/Dextrose 360 mg in 200 mls @ 33.333 mls/hr 12/28/24 09:23 Nexterone Ivpb IV 12/28/24 15:22 .Q6H ONE Amiodarone HCl/Dextrose 360 mg in 200 mls @ 16.667 mls/hr 12/28/24 15:23 Nexterone Ivpb IV 12/29/24 15:22 .Q12H KRYSTIN Ondansetron HCl 4 mg 12/27/24 20:27 Ondansetron Inj 2 Mg/Ml Inj 2 Ml IVP 01/26/25 20:26 Q6H PRN NAUSEA OR VOMITING Protocol Tamsulosin HCl 0.4 mg 12/28/24 09:00 Tamsulosin Hcl 0.4 Mg Capsule PO 01/27/25 08:59 QDAY KRYSTIN Plan 79-year-old male with no PMHx who presented to the ED due to fevers and chills. Patient will be admitted for management of UTI after failing outpatient therapy. Appreciate recommendations from cardiology team. New onset atrial flutter On admission, had a spike of, HR 137, otherwise HR was maintaining around 80?90. On exam today he was found tachycardic, rhythm felt to be irregular. EKG showed atrial flutter with HR 118. No history of tachyarrhythmia, states he is usually bradycardic with HR 40-50. Report an episode of pre-syncope/syncope 5 years ago for which he came to ED and had negative work-up. States he followed up with Dr. Wren 5 years ago but work- up has been negative. Denies excessive caffeine intake (2 cups daily), alcohol, tobacco or drug use. No utox performed. Possibly new onset A-fib RVR in settings of UTI. [id number] 2, 2.2% annual stroke risk. HASBLED 1, 3.4% risk of major bleed. ? Upgraded to telemetry ? Maintain K > 4.0 and Mg > 2.0 ? Started AMIODARONE drip protocol ? Pending further recommendations from cardiology Complicated UTI, likely GNR BPH Presenting with urinary symptoms, fever and chills after failing outpatient ABX. PCP started BACTRIM but appears he had allergic reaction with shaking and chills which is why he decided to come to ED. Previous urine culture grew E. coli, relatively al sensitive. Tmax 100.7 on presentation, currently afebrile, no leukocytosis. ? Continue home TAMSULOSIN ? Continue ZOSYN (12/28 to present) ? Pending panculture, de-escalate ABX accordingly Acute Kidney injury (resolved) CR 1.4 on presentation, baseline 0.8?1.0. Resolved with fluids. ? Renally dose meds, avoid overdiuresis and NEPHROTOXINS ? Daily CMP ? Continue IVF at 125 cc/H Electrolyte derangement Phosphorus 2.2, repleted ? Daily labs Health maintenance Diet: Cardiac diet GI prophylaxis: Not indicated DVT prophylaxis: HEPARIN subQ Antibiotics: ZOSYN CODE STATUS: DNR Disposition: Treating UTI, pending cx, pending cardio recs for arrhythmia Case was discussed with attending physician and senior resident. Markos Calloway DO PGYI This document was transcribed using voice recognition technology. Minor inaccuracies may be present. Attending Provider Attestation/Addendum Sharmila Jean DO, attest that I was physically present for the coy portions of the service and evaluated the patient with the resident and I reviewed and discussed the case with the resident and agree with the resident's findings and plans of care as documented above Patient seen and evaluated this AM. Patient states that he had been feeling unwell with fevers and chills despite taking antibiotics outpatient for his UTI. Patient denies frequent UTIs. He also denies flank pain, but endorses dysuria. Patient states he is currently feeling better, but sleepy. He denies any chest pain or palpitations. He is noted to have new onset a flutter. Will start on amio drip and consult cardiology. Patient states he had full cardiac workup done about 3 years ago and was cleared. Will f/u with cardiology recommendations and f/u with repeat blood and urine cultures. Will order echocardiogram to rule out any structural abnormalities.
[2024-12-28] MEDS: TAMSULOSIN HCL 0.4 MG CAPSULE PO (09:25)
[2024-12-28] MEDS: AMIODARONE 150 MG IVPB 150 MG/100 ML BAG 600 MG IV (09:50)
[2024-12-28] MEDS: POTASSIUM PHOS 22.5 MMOL in SODIUM CHLORIDE 0.9% 500 ML 500 ML 82.778 MMOL IV (10:08)
[2024-12-28] MEDS: AMIODARONE 360 MG IVPB 360 MG/200 ML BAG 33.333 MG IV (10:09)
[2024-12-28] MEDS: Magnesium Sulfate 2 GM Ivpb 2 GM/50 ML BAG IV (10:43)
--- NOTE | 2024-12-28 11:36 | ECHO_ITS ---
Transthoracic Echo Report Ht (in): 71 Wt (lb): 170 Exam Location: Echo Lab Status: Inpatient Bottled Beverage Inspector: Ivis Pal Indications: Procedure Performed: BP: 111 / 88 HR: 90 Technical Quality: Adequate MEASUREMENTS (Male / Female) Normal Values 2D ECHO LV Diastolic Diameter PLAX 3.9 cm 4.2 - 5.9 / 3.9 - 5.3 cm LV Systolic Diameter PLAX 2.8 cm IVS Diastolic Thickness 1.0 cm 0.6 - 1.0 / 0.6 - 0.9 cm LVPW Diastolic Thickness 1.2 cm 0.6 - 1.0 / 0.6 - 0.9 cm LV Relative Wall Thickness 0.6 LVOT Diameter 2.0 cm LA Volume Index 49.0 cm?/m? 16 - 28 cm?/m? Ascending Aorta Diameter 3.7 cm DOPPLER AV Peak Velocity 104.6 cm/s AV Peak Gradient 4.4 mmHg LVOT Peak Velocity 106.0 cm/s LVOT Peak Gradient 4.5 mmHg AV Area Cont Eq pk 3.2 cm? TR Peak Velocity 180.3 cm/s TR Peak Gradient 13.0 mmHg PV Peak Velocity 86.0 cm/s PV Peak Gradient 3.0 mmHg FINDINGS Left Ventricle Normal left ventricular size and systolic function with no obvious regional wall motion abnormalities. Mild left ventriuclar hypertrophy. Unable to determine diastology due to AFIB. The ejection fraction is visually estimated at 55 %. Right Ventricle The right ventricle is normal in size and systolic function. The estimated right ventricular systolic pressure, 13mmHg. RAP 10mmHg. Left Atrium The left atrium is severely enlarged. Right Atrium The right atrium is normal by two-dimensional imaging, color flow and Doppler imaging with no structural abnormalities, no thrombus formation present. Atrial Septum The interatrial septum appears normal with no evidence of a shunt. Aorta The aorta is normal by two-dimensional, color flow and Doppler interrogation. Mitral Valve The mitral valve annulus as well as leaflets are mildlly calcified without stenosis. There is mild mitral valve prolapse present in both leaflets. Mild mitral regurgitation. Aortic Valve The aortic valve is trileaflet and normal by two-dimensional, color flow and Doppler interrogation. There is trace aortic regurgitation. Tricuspid Valve The tricuspid valve is normal by two-dimensional, color flow and Doppler interrogation. There is mild tricuspid regurgitation. Pulmonic Valve The pulmonic valve is not well visualized. There is trace pulmonic regurgitation. Vessels The pulmonary artery appears normal. The inferior vena cava is dilated with >50% collapse. Pericardium The pericardium is normal by two-dimensional imaging. There is no significant pericardial effusion. CONCLUSIONS Indications: New Onset AFIB Normal LV size and function. Estimated EF 55-60%. Mild LVH. Diastolic dysfunction present but cannot be graded due to the A-fib. Normal RV size and function. Normal RVSP at 25 mmHg. Severe left atrial dilatation.Normal right atrium. Mild MAC. Mild MR. Trace AI, PI. Mild TR. Dilated IVC. Trace to small pericardial effusion without any evidence of cardiac tamponade. Brett Rojo (Electronically Signed) Final Date: 28 December 2024 17:42
--- NOTE | 2024-12-28 11:38 | ESCONSULT_ITS ---
HPI Data of Consult Requesting Physician: Mike Gould MD Primary Care Provider: Janeth Meadows MD Consult Narrative History of present illness: 79-year-old male with seen in the ER with fever and chills' cardiology consulted for afib/ flutter cc:: cc: Mike Gould MD Meds Home Medications and Allergies Home Medications ?Medication ?Instructions ?Recorded ?Confirmed ?Type tamsulosin 0.4 mg capsule 0.4 mg PO QDAY 12/27/2412/04 History Allergies Allergy/AdvReac Type Severity Reaction Status Date / Time sulfamethoxazole (From Allergy Severe Shakiness Verified 12/28/24 09:08 Bactrim) trimethoprim (From Bactrim) Allergy Severe Shakiness Verified 12/28/24 09:08 Exam Vital Signs Temp Pulse Resp BP Pulse Ox O2 Del Method 97.6 F 90 18 111/88 H 94 L Room Air 12/28/24 07:35 12/28/24 10:09 12/28/24 07:35 12/28/24 10:09 12/28/24 07:35 12/28/24 07:35 Results Labs 12/28/24 04:39 12/28/24 04:39 Labs: Short CBC 12/27/24 12/28/24 Range/Units 15:34 04:39 WBC 10.9 H 7.1 (3.8-10.6) Thou/mm3 Hgb 13.9 12.4 L (13.5-16.0) g/dL Hct 41.2 36.5 L (41.0-53.0) % Plt Count 255 240 (140-440) Thou/mm3 BMP 12/27/24 12/28/24 15:34 04:39 Sodium 138 141 Potassium 4.3 3.8 D Chloride 104 111 H Carbon Dioxide 26.8 23.3 BUN 16 12 Creatinine 1.4 H 1.0 Glucose 124 H 105 Calcium 8.9 7.9 L Liver Function 12/27/24 12/28/24 Range/Units 15:34 04:39 Total Bilirubin 0.6 0.3 (0.3-1.2) mg/dL AST 17 16 (0-34) U/L ALT 15 11 (10-49) U/L Alkaline Phosphatase 65 57 (46-116) U/L Albumin 3.8 3.2 L D (3.4-4.8) gm/dL Urine 12/27/24 Range/Units 16:10 Urine Color Yellow (Lt Yel-Yel) Urine Clarity Hazy (Clear/Hazy) Urine pH 8.0 H (5.0-7.0) Ur Specific [place] 1.013 (1.001-1.035) Urine Protein Trace (Neg - Trace) Urine Glucose (UA) Negative (Negative)
--- NOTE | 2024-12-28 14:00 | PD.RESCONSUL ---
HPI Data of Consult Requesting Physician: Sharmila Ellis DO Admitting Provider: Mike Gould MD Attending Provider: Sharmila Ellis DO Primary Care Provider: Janeth Meadows MD Consult Narrative History of present illness: CC: fever at home Patient is a 79 year old male with a limited past medical history of anxiety, BPH on tamsulosin, and history of anorectal mass s/p biopsy adenoma. Patient presented to the emergency room with a chief complain of urinary tract infection initially diagnosed in the outpatient setting. Patient stated urinary track infection has been ongoing for a couple of week. Despite starting bactrim in the outpatient setting. Mild improved after bactrim when buring sensation improved for one day but pain with urination returned. Patient stated he has urinary retention, likely secondary to history of BPH. Patient complaining of cough and fever at home prior to admission. I episode of emesis reported, denied hemoptysis. Patient denied chest pain, palpitations. or shortness of breath. Denied orthopnea, PND, or lower peripheral edema. Patient initially admitted secondary to UTI and JACINTO. Patinet subsequently developed atrial flutter. Patient was counselded on atrial fibrillation diagnosis. Currently on Amiodarone drip which on 12/29/2024 at 15:22. Patient would benefit from Metoprolol XL 50 mg qday if blood pressure permits, consider lower dose if need be. 12/27/2024: Cardiology consulted for new onset of atrial flutter. 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, (2023), history of anixety surgical History: colonoscopy social History: Denies cigarette use, denies alcohol use, denies illicit substances although patient does endorse taking THC Gummies every 1 to 2 days family history: none cc:: cc: Sharmila Ellis, Review of Systems Review of Systems Narrative Review of Systems: General appearance: NO weight change, Yes fatigue, NO weakness, YES fever, NO chills, NO night sweats, No cough Skin: NO rash, NO itching, NO sores, NO moles HEENT: NO Trauma, NO nausea, NO vomiting, NO visual changes, NO blurry vision, NO double vision, NO tinnitus, NO vertigo, NO ear discharge, NO rhinorrhea, NO stuffiness, NO sneezing, NO allergy, NO epistaxis. NO Hoarseness, NO sore throat, NO swollen neck. Cardiac: NO Palpitations, NO dyspnea on exertion, NO orthopnea, NO paroxysmal nocturnal dyspnea, NO edema Respiratory: NO Shortness of Breath, NO Wheezing, NO Cough, NO Sputum, NO hemoptysis GI:NO appetite, NO nausea, NO vomiting, NO dysphagia, NO changes in bowel frequency, NO stool color, NO diarrhea, NO constipation, NO hemetemesis, NO hemorrhoids, NO melena, NO hematechezia, NO abdominal pain, NO jaundice Renal: NO frequency, NO hesitancy, NO urgency, NO hematuria, NO nocturia, NO incontinence MSK: NO muscle weakness, NO gout, NO arthritis, NO muscle stiffness Neuro: NO headaches, NO tremors, NO weakness, NO paralysis, NO seizures, NO loss of consciousness, NO numbness. Hem: NO anemia, NO easy bruising/bleeding, NO petechiae, NO purpura Endo: NO heat/cold intolerance, NO excessive sweating, NO polyuria, NO polydipsia, NO polyphagia, NO thyroid problems, NO diabetes Pysch: NO mood, history anxiety, NO depression Exam Vital Signs Temp Pulse Resp BP Pulse Ox O2 Del Method 97.6 F 86 16 115/88 H 94 L Room Air 12/28/24 15:50 12/28/24 16:00 12/28/24 15:50 12/28/24 15:50 12/28/24 15:50 12/28/24 15:50 Narrative Exam General Appearance: Alert & Oriented X3, well-nourished male who is lying in bed in no acute distress HEENT: Skull symmetrical and atraumatic. Conjunctivae pink and moist. Pupils equal, round, reactive to light and accommodation (PERRL). External ear without lesion or discharge. Straight, nares patient, mucosa pink, no discharge. No thyroid nodule appreciated. No cervical lymphadenopathy. Cardio: Normal Rate and Rhythm with S1 and S2 heart sounds. No murmurs or extra heart sounds auscultated. No bruits on carotid auscultation. No peripheral edema or cyanosis. Lungs: Symmetric with good expansion. Chest and back non-tender. Breath sounds vesicular without crackles, wheezing or rhonchi Abdomen: Non-tender, Non-distended, Normal Reactive Bowel Sounds Neuro: Alert, cooperative, oriented to person, place, and time. Speech clear. CN grossly intact. Upper motor strength 5/5 and Lower motor strength 5/5. Sensation intact. Results Labs 12/29/24 04:26 12/29/24 04:26 Labs: Short CBC 12/28/24 Range/Units 04:39 WBC 7.1 (3.8-10.6) Thou/mm3 Hgb 12.4 L (13.5-16.0) g/dL Hct 36.5 L (41.0-53.0) % Plt Count 240 (140-440) Thou/mm3 BMP 12/28/24 04:39 Sodium 141 Potassium 3.8 D Chloride 111 H Carbon Dioxide 23.3 BUN 12 Creatinine 1.0 Glucose 105 Calcium 7.9 L Liver Function 12/28/24 Range/Units 04:39 Total Bilirubin 0.3 (0.3-1.2) mg/dL AST 16 (0-34) U/L ALT 11 (10-49) U/L Alkaline Phosphatase 57 (46-116) U/L Albumin 3.2 L D (3.4-4.8) gm/dL Quality Measures Quality Measures none Advance care planning discussed with:: patient Medications Home Medications and Allergies Home Medications ?Medication ?Instructions ?Recorded ?Confirmed ?Type tamsulosin 0.4 mg capsule 0.4 mg PO QDAY 12/27/24 12/27/24 History Allergies Allergy/AdvReac Type Severity Reaction Status Date / Time sulfamethoxazole (From Allergy Severe Shakiness Verified 12/28/24 09:08 Bactrim) trimethoprim (From Bactrim) Allergy Severe Shakiness Verified 12/28/24 09:08 Visit Medications Acetaminophen (Acetaminophen 325 Mg Tablet) 650 mg PO Q6H PRN PRN Reason: Fever >100.4 Stop: 01/26/25 20:26 Acetaminophen (Acetaminophen 500 Mg Tablet) 1,000 mg PO Q6H PRN PRN Reason: PAIN SCALE 1-3 (mild Stop: 01/26/25 20:26 Heparin Sodium (Porcine) (Heparin Sod Inj 5000 Unit/Ml Vial) 5,000 unit SC BID [facility] Stop: 01/11/25 20:59 Piperacillin/Tazobactam/Dextrose (Zosyn) 3.375 gm in 50 mls @ 12.5 mls/hr IV Q8HR KRYSTIN Stop: 01/04/25 05:59 Last Admin: 12/28/24 13:47 Dose: 12.5 mls/hr Amiodarone HCl/Dextrose (Nexterone Ivpb) 360 mg in 200 mls @ 16.667 mls/hr IV .Q12H [facility] Stop: 12/29/24 15:22 Last Admin: 12/28/24 15:50 Dose: 16.667 mls/hr Ondansetron HCl (Ondansetron Inj 2 Mg/Ml Inj 2 Ml) 4 mg IVP Q6H PRN; Protocol PRN Reason: NAUSEA OR VOMITING Stop: 01/26/25 20:26 Tamsulosin HCl (Tamsulosin Hcl 0.4 Mg Capsule) 0.4 mg PO QDAY [facility] Stop: 01/27/25 08:59 Last Admin: 12/28/24 09:25 Dose: 0.4 mg Discontinued Medications Acetaminophen (Acetaminophen 500 Mg Tablet) 1,000 mg PO X1 ONE Stop: 12/27/24 15:13 Last Admin: 12/27/24 16:06 Dose: 1,000 mg Acetaminophen (Acetaminophen 325 Mg Tablet) 1,000 mg PO Q6H PRN PRN Reason: PAIN SCALE 1-3 (mild Stop: 01/26/25 20:26 Sodium Chloride (Ns) 1,000 mls @ 999 mls/hr IV .Q1H1M ONE Stop: 12/27/24 16:04 Last Infusion: 12/27/24 20:30 Dose: Infused Ceftriaxone Sodium/Dextrose (Rocephin/D5w 1gm Iv Premix) 1 gm in 50 mls @ 100 mls/hr IV X1 ONE Stop: 12/27/24 15:43 Last Infusion: 12/27/24 20:00 Dose: Infused Lactated Ringer's (Lactated Ringers) 1,000 mls @ 125 mls/hr IV .Q8H KRYSTIN Stop: 12/28/24 04:29 Last Admin: 12/27/24 21:26 Dose: 125 mls/hr Piperacillin/Tazobactam/Dextrose (Zosyn) 3.375 gm in 50 mls @ 100 mls/hr IV X1 ONE Stop: 12/27/24 21:14 Last Infusion: 12/27/24 21:32 Dose: Infused Potassium Phosphate 22.5 mmol/ (Sodium Chloride) 507.5 mls @ 82.778 mls/hr IV X1 ONE Stop: 12/28/24 14:03 Last Admin: 12/28/24 10:08 Dose: 82.778 mls/hr Amiodarone HCl/Dextrose (Nexterone Ivpb) 360 mg in 200 mls @ 16.667 mls/hr IV .Q12H [facility] Stop: 12/29/24 09:22 Amiodarone HCl/Dextrose (Nexterone Ivpb) 360 mg in 200 mls @ 33.333 mls/hr IV .Q6H ONE Stop: 12/28/24 15:22 Last Admin: 12/28/24 10:09 Dose: 33.333 mls/hr Amiodarone HCl/Dextrose (Nexterone Ivpb) 150 mg in 100 mls @ 600 mls/hr IV .Q10M ONE Stop: 12/28/24 09:23 Last Admin: 12/28/24 09:50 Dose: 600 mls/hr Magnesium Sulfate (Magnesium Sulfate Ivpb) 2 gm in 50 mls @ 25 mls/hr IV X1 ONE Stop: 12/28/24 11:42 Last Admin: 12/28/24 10:43 Dose: 25 mls/hr Tamsulosin HCl (Tamsulosin Hcl 0.4 Mg Capsule) 0.4 mg PO X1 ONE Stop: 12/27/24 21:11 Last Admin: 12/27/24 21:26 Dose: 0.4 mg Assessment & Plan Plan Patient is a 79 year old male with a limited past medical history of anxiety, BPH on tamsulosin, and history of anorectal mass s/p biopsy adenoma who was admitted overnight secondary to JACINTO and UTI. Cardiology consulted for abnormal EKG. #Atrial Flutter Patient presented with a new onset of atrial flutter on admission. Patient stated this is the first time every having an irregular rhythm. Paitne for the most part remained asymptomatic likely in th setting of UTI. CHADSVASc 2 points HAS BLED 1 point, risk 3.4 EKG Atrial Flutter Troponin <0.002 TSH:___ Chest x ray (12/28/2024): No pnemonia Plan -Consider Metoprolol XL PO, may uptitrate if BP permits. --Transition off Amiodarone drip -Eliquis 5 mg BID -TSH AM -Lipid panel AM #Acute kidney injury likely obstructive, resolved Patient presented with acute kidney injury likely obstructive given history of urinary retention requiring self-catheterization. CT abdomen pelvis on 12/27/2024 noted bilateral nonobstructing renal calculi with mild thickening of the left pelvic close cervical cyst on and proximal left ureteral. Monitor for signs of pyelonephritis. Patient will likely benefit with follow-up with urologist in the outpatient setting, Dr. Hines in [place]. BUN and creatinine ratio less than 20. JACINTO secondary to prerenal cannot be ruled out given history of emesis and likely poor oral intake secondary to urinary tract infection Plan -Continue to monitor BUN and creatinine -No need for strict ins and out given no history of CHF and JACINTO improved -Patient would benefit with a follow-up with Dr. Hines, primary neurologist #SIRS criteria, secondary to UTI #Complicated urinary tract infection #Sepsis rule out, UTI, less likely #Leukocytosis, improved Patient failed outpatient setting antibiotic treatment pain with urination and burning sensation. Increased risk of urinary tract infection given need for self-catheterization and male gender. Pharixia of 100.7 previous urine culture 12/14/2024 noted to be sensitive to most antibiotics with the exception of ampicillin ampicillin sulbactam, and tetracyclines-E. coli. QSOFA 1 point, not high risk Plan -Zosyn 12/28/2024 -Consider de-escalating -Pending urine culture -Blood culture negative after 24 hours #BPH -continue home medication of Tamsulosin 0.4 mg Qday . Monitor BP given intial systolic BP <100 on admission. Health Maintenance: Disp: Pt is currently admitted to floors for further management of JACINTO, UTI, and Urine cultures, Cardiology following. Please follow up with cardiology, Dr. Rojo, within one week of discharge. FEN: Cardiac DVT: on subQ heparin Q8HR Code: DNR - The patient's plan was discussed with attending Dr. Alia Mars MD PGY1 Internal Medicine Attending Provider Attestation/Addendum I have personally seen and examined the patient separately on the above date of service and discussed the plan of care with the resident. I reviewed the resident Dr. Teresita Mars consultation progress note and agree with the resident findings and plan in the note above and have also edited the documentation to reflect my findings and plan. A 79-year-old male with a past medical history of BPH on Flomax, history of urinary retention and hydronephrosis previously followed by urology in [place], and a rectal adenoma,Anxiety, presented to the emergency department for further evaluation of UTI not resolving to treatment as outpatient. Patient was admitted to the hospital and was started on IV antibiotics and had mild acute kidney injury on admission. Patient did develop atrial flutter with variable block with a rate of 120 bpm and later on was in atrial fibrillation. Cardiology was consulted for further evaluation. Patient denies any chest pain chest pressure shortness of breath orthopnea PND dizziness or leg swelling. His main complaints have been the urinary complaints. Denied having any previous heart disease. He was evaluated more than 5 years ago for an abnormal EKG and he had complete testing done including an echo and stress test at that point of time which were normal. He did not follow-up with cardiology since then Assessment and plan 1. New onset atrial flutter with variable plaques/atrial fibrillation 2. SIRS secondary to UTI 3. Acute kidney injury 4. BPH 5. Complicated UTI 6. History of urinary retention with hydronephrosis follows with urology in [place] Patient has new onset paroxysmal atrial flutter/fibrillation. Patient has never been diagnosed with A-fib or atrial flutter. Patient was started on amiodarone bolus and drip by the primary team and rate is well-controlled right now at 70 to 80 bpm on amiodarone drip but he is still in atrial fibrillation with intermittent atrial flutter. Recommend to continue the amiodarone drip as per the protocol. If patient blood pressure is permissible during recommend to start metoprolol XL for rate control. If blood pressure is low normal or hypotensive secondary to the complicated UTI answers then patient can be transition to oral amiodarone 200 mg twice daily. Continue heparin drip for anticoagulation and patient should be transition to oral Eliquis 5 mg twice daily if no further procedures are planned. Discussed in detail about the atrial fibrillation with the and patient at the bedside. Echocardiogram has been ordered to evaluate LV function RV function as well as diastolic function. Keep potassium greater than 4 and magnesium greater than 2.0. Continue telemetry Management of rest of the medical conditions as per primary team and other consultants. Thank you for the consult and allowing me to participate in the care of the patient. Cardiology will continue to follow. Brett Rojo M.D. Interventional Cardiology
--- NOTE | 2024-12-28 15:14 | PC.SS ---
Initial assessment: patient is a 79-year old male here for UTI failed OP therapy. Patient is alert and oriented. Patient was able to confirm demographic information. Patient resides at home with spouse Rosangela. Patient confirms his , Rosangela to be his alternate medical decision maker if necessary. Patient informs he is independent with ADL's and able to ambulate without any issues. Patient denies use of DME at home. Patient indicates his PCP is Dr. Janeth Meadows. Pharmacy of choice is [facility] on [facility]. Patient would like to return home upon discharge, informs he has transport available and denies any current needs at this time. D/c plan: Home Next of kin: , Rosangela
--- NOTE | 2024-12-28 15:20 | PC.SS ---
Rounding note: cardiology was consulted for AFIB. D/c plan is to return home.
[2024-12-28] MEDS: AMIODARONE 360 MG IVPB 360 MG/200 ML BAG 16.667 MG IV (15:50)
[2024-12-28] MEDS: HEPARIN SOD INJ 5000 UNIT/ML VIAL SC (21:09)
[2024-12-29] VITALS (14 sets, daily range): BP systolic 117–144; BP diastolic 77–92; PULSE 74–138; RESP 12–97; TEMP 36.2–37.1; O2SAT 94–97
[2024-12-29] MEDS: AMIODARONE 360 MG IVPB 360 MG/200 ML BAG 16.667 MG IV (03:40)
[2024-12-29 05:15] LABS: Basophils # (Auto) 0.1 Thou/mm3 (0.0-0.2); Basophils % (Auto) 1 % (0-2.5); Eosinophils # (Auto) 0.2 Thou/mm3 (0.0-0.5); Eosinophils % (Auto) 3 % (0-10); Hematocrit 37.7 % (41.0-53.0); Hemoglobin 12.4 g/dL (13.5-16.0); Immature Granulocytes % (Auto) 0 % (0-0); Immature Granulocytes Auto 0.02 Thou/mm3 (0.00-0.00); Lymphocytes % (Auto) 14 % (10-50); Mean Corpuscular HGB Conc 32.9 g/dl (31.0-37.0); Mean Corpuscular Hemoglobin 27.7 pg (25.0-35.0); Mean Corpuscular Volume 84 fL (80-100); Monocytes % (Auto) 13 % (0-12); Neutrophils # (Auto) 5.1 Thou/mm3 (1.8-7.7); Neutrophils % (Auto) 70 % (37-80); Nucleated Red Blood Cell % 0 /100 WBC (0); Platelet Count 284 Thou/mm3 (140-440); RDW Standard Deviation 44.1 fL (35.1-43.9); Red Blood Count 4.48 Miln/mm3 (4.50-5.90); White Blood Count 7.3 Thou/mm3 (3.8-10.6)
[2024-12-29 05:36] LABS: Alanine Aminotransferase 16 U/L (10-49); Albumin, Serum 3.3 gm/dL (3.4-4.8); Albumin/Globulin Ratio 1.3 (1.2-2.2); Alkaline Phosphatase 55 U/L (46-116); Anion Gap 8 (7-16); Aspartate Amino Transferase 18 U/L (0-34); BUN/Creatinine Ratio 9 Ratio (12-20); Bilirubin,Total 0.2 mg/dL (0.3-1.2); Blood Urea Nitrogen 9 mg/dL (9-23); Calcium 8.6 mg/dL (8.3-10.6); Calcium (Corrected) 9.2 mg/dL (8.5-10.1); Carbon Dioxide 24.3 mMol/L (20.0-31.0); Cardiac Risk Estimate 4.1 RATIO (4.0-6.7); Chloride 110 mMol/L (98-107); Cholesterol 111 mg/dL (132-200); Estimated Creatinine Clearance 64.8 mL/min (>60); Globulin 2.6 gm/dL (2.3-3.5); Glucose 102 mg/dL (74-106); HDL Cholesterol 27 mg/dL (40-60); LDL Cholesterol,Calculated 70 mg/dL (0-130); Osmolality,Calculated 281 (275-295); Sodium 142 mMol/L (136-145); Thyroid Stimulating Hormone 3.92 uIU/mL (0.55-4.78); Total Protein 5.9 gm/dL (5.7-8.2); Triglycerides 72 mg/dL (30-150); eGFR > 60 See Note
[2024-12-29] MEDS: PIPER/TAZO 3.375 GM PREMIX 3.375 GM/50 ML BAG IV ×3 (05:42→21:41)
--- NOTE | 2024-12-29 07:59 | ESPR_ITS ---
<Statement entered by Toño Khanna MD - 01/01/25 14:37> I Toño Khanna MD reviewed the note and agree with the resident's assessment & plan with exceptions as below. I have personally reviewed labs, imaging, home meds/prior records, examined the patient, formulated and discussed management plan with the IM team. A 79-year-old male admitted for UTI and new onset atrial fibrillation/flutter. Continue Eliquis and amiodarone, start on metoprolol 25 mg twice daily, currently rate is controlled. Consult cardiology. Will empirically treat with Zosyn for UTI. <Statement entered by Jens Guzman MD - 12/29/24 18:39> I discussed with and supervised the international exchange coordinator physician involved in the care of this patient. Patient assessment and plan was discussed with entire medicine team, including my attending. I agree with the assessment and plan as documented by international exchange coordinator doctor. Patient care was discussed with my attending physician Dr. Jey Guzman, PGY-2 Documentation for date of: 12/29/24 Subjective Subjective Interval history: No acute overnight events. Frequent PVCs noted on 7 overnight, which improved with magnesium. Reports feeling better today. Denies fever, chills, headaches, chest pain, sob, cough, GI or urinary symptoms. Discussed benefits and risk of being on blood thinner, including internal bleed, GI bleed, and brain bleed. Patient agreed prior to starting therapy. Exam Vital Signs Temp Pulse Resp BP Pulse Ox O2 Del Method 97.6 F 83 20 122/85 H 95 Room Air 12/29/24 04:00 12/29/24 04:00 12/29/24 04:00 12/29/24 04:00 12/29/24 04:00 12/29/24 04:00 Narrative Exam GENERAL * Normal appearing adult male, NAD. HEENT * NCAT.?LIVE. Oral mucosa is moist. Patent Nares NECK * Supple, nontender, no JVD. CHEST * Tachycardic, irregularly irregular rhythm, no m/g/r * CTAB, no w/r/r, symmetrical expansion. ABDOMEN * Soft, flat, nontender. No guarding/rebound tenderness/masses. * Bowel sounds presents EXTREMITIES * No edema/cyanosis.?SKIN * Warm and dry, no jaundice/rashes. NEUROMUSCULAR * No lumbar or midline, no CVA, no paraspinal muscle spasm or tenderness. * Moves all 4 extremities well, with full ROM and good CSM. * MAURER x4, CN II-XII grossly intact. * No focal neurologic deficits. PSYCHIATRY * Normal mood and affect, cooperative, no SI or HI or hallucinations. Objective Labs 12/29/24 04:26 12/29/24 04:26 Labs: Laboratory Results - last 24 hr 12/29/24 04:26 WBC 7.3 RBC 4.48 L Hgb 12.4 L Hct 37.7 L MCV 84 MCH 27.7 MCHC 32.9 RDW Std Deviation 44.1 H Plt Count 284 D Neut % (Auto) 70 Lymph % (Auto) 14 Clay % (Auto) 13 H Eos % (Auto) 3 Baso % (Auto) 1 Neut # (Auto) 5.1 Lymph # (Auto) 1.0 Clay # (Auto) 1.0 H Eos # (Auto) 0.2 Baso # (Auto) 0.1 Immature Gran # (Auto) 0.02 H Absolute Nucleated RBC 0.00 Immature Gran % 0 Nucleated RBC % 0 Sodium 142 Potassium 4.0 Chloride 110 H Carbon Dioxide 24.3 Anion Gap 8 BUN 9 Creatinine 1.0 Estim Creat Clear Calc 64.8 eGFR > 60 BUN/Creatinine Ratio 9 L Glucose 102 Calculated Osmolality 281 Calcium 8.6 Corrected Calcium 9.2 Phosphorus 3.0 Magnesium 2.0 Total Bilirubin 0.2 L AST 18 ALT 16 Alkaline Phosphatase 55 Total Protein 5.9 Albumin 3.3 L Globulin 2.6 Albumin/Globulin Ratio 1.3 Triglycerides 72 Cholesterol 111 L LDL Cholesterol, Calc 70 HDL Cholesterol 27 L Cholesterol/HDL Ratio 4.1 TSH 3.92 Quality Measures Quality Measures none Advance care planning discussed with:: patient Assessment & Plan Assessment Current Active Medications: Generic Name Dose Route Start Last Admin Trade Name Freq PRN Reason Stop Dose Admin Acetaminophen 650 mg 12/27/24 20:27 Acetaminophen 325 Mg Tablet PO 01/26/25 20:26 Q6H PRN Fever >100.4 Acetaminophen 1,000 mg 12/28/24 08:35 Acetaminophen 500 Mg Tablet PO 01/26/25 20:26 Q6H PRN PAIN SCALE 1-3 (mild Heparin Sodium (Porcine) 5,000 unit 12/28/24 21:00 12/28/24 21:09 Heparin Sod Inj 5000 Unit/Ml Vial SC 01/11/25 20:59 5,000 unit BID KRYSTIN Administration Piperacillin/Tazobactam/Dextrose 3.375 gm in 50 mls @ 12.5 mls/hr 12/28/24 06:00 12/29/24 05:42 Zosyn IV 01/04/25 05:59 12.5 mls/hr Q8HR KRYSTIN Administration Amiodarone HCl/Dextrose 360 mg in 200 mls @ 16.667 mls/hr 12/28/24 15:23 12/29/24 03:40 Nexterone Ivpb IV 12/29/24 15:22 16.667 mls/hr .Q12H KRYSTIN Administration Ondansetron HCl 4 mg 12/27/24 20:27 Ondansetron Inj 2 Mg/Ml Inj 2 Ml IVP 01/26/25 20:26 Q6H PRN NAUSEA OR VOMITING Protocol Tamsulosin HCl 0.4 mg 12/28/24 09:00 12/28/24 09:25 Tamsulosin Hcl 0.4 Mg Capsule PO 01/27/25 08:59 0.4 mg QDAY KRYSTIN Administration Plan 79-year-old male with no PMHx who presented to the ED due to fevers and chills. Patient will be admitted for management of UTI after failing outpatient therapy and new onset tachyarrhythmia. Appreciate recommendations from cardiology team. New onset atrial flutter On admission, had a spike of, HR 137, otherwise HR was maintaining around 80?90. On exam today he was found tachycardic, rhythm felt to be irregular. EKG showed atrial flutter with HR 118. No history of tachyarrhythmia, states he is usually bradycardic with HR 40-50. Report an episode of pre-syncope/syncope 5 years ago for which he came to ED and had negative work-up. States he followed up with Dr. Wren 5 years ago but work- up has been negative. Denies excessive caffeine intake (2 cups daily), alcohol, tobacco or drug use. No utox performed. Possibly new onset A-fib RVR in settings of UTI. [id number] 2, 2.2% annual stroke risk. HASBLED 1, 3.4% risk of major bleed. TSH 3.94. TG 72, cholesterol 111, LDL 70, HDL 27 Cardiology recommended METOPROLOL XL p.o., transition off AMIODARONE drip, ELIQUIS. ? Maintain K > 4.0 and Mg > 2.0 ? Continue on AMIODARONE drip protocol ? Will switch to AMIODARONE 400 mg BID for 7 days, then 200 mg daily thereafter. ? Started METOPROLOL TARTRATE 25 mg BID. ? Pending further recommendations from cardiology Complicated UTI, likely GNR BPH Presenting with urinary symptoms, fever and chills after failing outpatient ABX. PCP started BACTRIM but appears he had allergic reaction with shaking and chills which is why he decided to come to ED. Previous urine culture grew E. coli, relatively al sensitive. Tmax 100.7 on presentation, currently afebrile, no leukocytosis. ZOSYN (12/28 to 12/29) ? Continue home TAMSULOSIN ? Continue CEFTRIAXONE (12/29 to present) ? Pending panculture, de-escalate ABX accordingly Acute Kidney injury (resolved) CR 1.4 on presentation, baseline 0.8?1.0. Resolved with fluids. ? Renally dose meds, avoid overdiuresis and NEPHROTOXINS ? Daily CMP ? Continue IVF at 125 cc/H Electrolyte derangement Phosphorus 2.2, repleted ? Daily labs Health maintenance Diet: Cardiac diet GI prophylaxis: Not indicated DVT prophylaxis: HEPARIN subQ Antibiotics: ZOSYN CODE STATUS: DNR Disposition: Treating UTI, pending cx, pending cardio recs for arrhythmia Case was discussed with attending physician and senior resident. DO SHIRA Geiger This document was transcribed using voice recognition technology. Minor inaccuracies may be present.
[2024-12-29] MEDS: TAMSULOSIN HCL 0.4 MG CAPSULE PO (08:28)
[2024-12-29] MEDS: HEPARIN SOD INJ 5000 UNIT/ML VIAL SC (08:30)
--- NOTE | 2024-12-29 14:40 | PC.SS ---
Patient to dc home with spouse. New onset of afib. D/c wed/wednesday
[2024-12-29] MEDS: AMIODARONE HCL 200 MG TABLET PO (20:21)
[2024-12-29] MEDS: APIXABAN 2.5 MG TABLET 5 MG PO (20:22)
[2024-12-29] MEDS: AMIODARONE 360 MG IVPB 360 MG/200 ML BAG 33.333 MG IV (20:24)
--- NOTE | 2024-12-29 22:51 | PD.IMPROG ---
Documentation for date of: 12/29/24 Subjective Subjective Interval history: Patient seen and examined at the bedside. Reviewed the telemetry and patient continues to be in atrial flutter with variable block and rate controlled while at rest but his heart rate increases up to 130s to 150s even with standing up and going to the restroom. Amiodarone drip stopped and patient was started on metoprolol XL 25 mg once daily but the blood pressure continues to be low. Recommend to stop the metoprolol XL completely and restarted the patient on amiodarone drip at 1 mg/min along with amiodarone 200 mg twice daily. Will check the QTc in AM. Potassium was 4.0 and magnesium 2.0 and recommend to give additional magnesium 2 g IV. Keep potassium greater than 4 and magnesium greater than 2.0 at all times. Discussed with patient, at bedside and son over the phone who is orthopedic surgeon. Plan is to continue amiodarone drip amiodarone oral for rate control and eventually performed cardioversion as outpatient after loading amiodarone if he does not convert to normal sinus rhythm. Patient at baseline has bradycardia with heart rate in the 40s to 50s. Will continue to follow the patient and see if there is evidence of any tachybradycardia syndrome. Exam Vital Signs Temp Pulse Resp BP Pulse Ox O2 Del Method 98.2 F 82 18 144/80 H 94 L Room Air 12/29/24 20:00 12/29/24 20:24 12/29/24 20:00 12/29/24 20:24 12/29/24 20:00 12/29/24 20:00 Narrative Exam General: Alert and oriented x3. In no acute distress. Eyes: Pupils are equal and reactive to light bilaterally. HEENT: Atraumatic, normocephalic. No JVD noted. Mucosa moist. Cardiovascular: Normal S1 and S2. Irregularly irregular. No murmurs appreciated. No peripheral pitting edema noted. Respiratory: No respiratory distress. Lungs are clear to auscultation bilaterally. No wheezing or crackles heard. Abdomen: Soft, nontender, nondistended. Skin: No rash. Warm to touch. Musculoskeletal: No gross injuries. Able to move all 4 extremities. Neuro: Alert and oriented x3. No focal neuro deficits. Psych: Normal affect and mood Objective Labs 12/29/24 04:26 12/29/24 04:26 Labs: Laboratory Results - last 24 hr 12/29/24 04:26 WBC 7.3 RBC 4.48 L Hgb 12.4 L Hct 37.7 L MCV 84 MCH 27.7 MCHC 32.9 RDW Std Deviation 44.1 H Plt Count 284 D Neut % (Auto) 70 Lymph % (Auto) 14 [place] % (Auto) 13 H Eos % (Auto) 3 Baso % (Auto) 1 Neut # (Auto) 5.1 Lymph # (Auto) 1.0 [place] # (Auto) 1.0 H Eos # (Auto) 0.2 Baso # (Auto) 0.1 Immature Gran # (Auto) 0.02 H Absolute Nucleated RBC 0.00 Immature Gran % 0 Nucleated RBC % 0 Sodium 142 Potassium 4.0 Chloride 110 H Carbon Dioxide 24.3 Anion Gap 8 BUN 9 Creatinine 1.0 Estim Creat Clear Calc 64.8 eGFR > 60 BUN/Creatinine Ratio 9 L Glucose 102 Calculated Osmolality 281 Calcium 8.6 Corrected Calcium 9.2 Phosphorus 3.0 Magnesium 2.0 Total Bilirubin 0.2 L AST 18 ALT 16 Alkaline Phosphatase 55 Total Protein 5.9 Albumin 3.3 L Globulin 2.6 Albumin/Globulin Ratio 1.3 Triglycerides 72 Cholesterol 111 L LDL Cholesterol, Calc 70 HDL Cholesterol 27 L Cholesterol/HDL Ratio 4.1 TSH 3.92 Assessment & Plan A&P Narrative A 79-year-old male with a past medical history of BPH on Flomax, history of urinary retention and hydronephrosis previously followed by urology in [place], and a rectal adenoma,Anxiety, presented to the emergency department for further evaluation of UTI not resolving to treatment as outpatient. Patient was admitted to the hospital and was started on IV antibiotics and had mild acute kidney injury on admission. Patient did develop atrial flutter with variable block with a rate of 120 bpm and later on was in atrial fibrillation. Cardiology was consulted for further evaluation. Patient denies any chest pain chest pressure shortness of breath orthopnea PND dizziness or leg swelling. His main complaints have been the urinary complaints. Denied having any previous heart disease. He was evaluated more than 5 years ago for an abnormal EKG and he had complete testing done including an echo and stress test at that point of time which were normal. He did not follow-up with cardiology since then Assessment and plan 1. New onset atrial flutter with variable plaques/atrial fibrillation 2. SIRS secondary to UTI 3. Acute kidney injury 4. BPH 5. Complicated UTI 6. History of urinary retention with hydronephrosis follows with urology in [place] Patient has new onset paroxysmal atrial flutter/fibrillation. Patient has never been diagnosed with A-fib or atrial flutter. Patient was started on amiodarone bolus and drip by the primary team and rate is well-controlled right now at 70 to 80 bpm on amiodarone drip but he is still in atrial fibrillation with intermittent atrial flutter. Recommend to continue the amiodarone drip as per the protocol. If patient blood pressure is permissible during recommend to start metoprolol XL for rate control. If blood pressure is low normal or hypotensive secondary to the complicated UTI answers then patient can be transition to oral amiodarone 200 mg twice daily. Continue heparin drip for anticoagulation and patient should be transition to oral Eliquis 5 mg twice daily if no further procedures are planned. Discussed in detail about the atrial fibrillation with the and patient at the bedside. Echocardiogram showed normal LV function and RV function EF of 60 to 65% without major valvular abnormalities. Does have left atrial dilatation. 12/29/2024: Reviewed the telemetry and patient continues to be in atrial flutter with variable block and rate controlled while at rest but his heart rate increases up to 130s to 150s even with standing up and going to the restroom. Amiodarone drip stopped and patient was started on metoprolol XL 25 mg once daily but the blood pressure continues to be low. Recommend to stop the metoprolol XL completely and restarted the patient on amiodarone drip at 1 mg/min along with amiodarone 200 mg twice daily. Will check the QTc in AM. Potassium was 4.0 and magnesium 2.0 and recommend to give additional magnesium 2 g IV. Keep potassium greater than 4 and magnesium greater than 2.0 at all times. Discussed with patient, at bedside and son over the phone who is orthopedic surgeon. Plan is to continue amiodarone drip amiodarone oral for rate control and eventually performed cardioversion as outpatient after loading amiodarone if he does not convert to normal sinus rhythm. Patient at baseline has bradycardia with heart rate in the 40s to 50s. Will continue to follow the patient and see if there is evidence of any tachybradycardia syndrome. Management of rest of the medical conditions as per primary team and other consultants. Thank you for the consult and allowing me to participate in the care of the patient. Cardiology will continue to follow. Brett Rojo M.D. Interventional Cardiology Time Spent With Patient Time: Total time spent is greater than 50% in coordination of care (as documented) at patient's floor/unit and/or counseling patient:
[2024-12-30] VITALS (16 sets, daily range): BP systolic 88–157; BP diastolic 58–92; PULSE 59–126; RESP 18–97; TEMP 36.2–36.5; O2SAT 94–97; BMI 23.8
[2024-12-30] MEDS: AMIODARONE 360 MG IVPB 360 MG/200 ML BAG 33.333 MG IV ×3 (02:19→14:23)
[2024-12-30] MEDS: PIPER/TAZO 3.375 GM PREMIX 3.375 GM/50 ML BAG IV (05:18)
[2024-12-30 06:50] LABS: Basophils % (Auto) 0 % (0-2.5); Eosinophils # (Auto) 0.2 Thou/mm3 (0.0-0.5); Eosinophils % (Auto) 3 % (0-10); Hematocrit 41.9 % (41.0-53.0); Hemoglobin 13.6 g/dL (13.5-16.0); Immature Granulocytes % (Auto) 0 % (0-0); Immature Granulocytes Auto 0.01 Thou/mm3 (0.00-0.00); Lymphocytes # (Auto) 1.4 Thou/mm3 (1.0-4.8); Lymphocytes % (Auto) 17 % (10-50); Mean Corpuscular HGB Conc 32.5 g/dl (31.0-37.0); Mean Corpuscular Hemoglobin 27.6 pg (25.0-35.0); Mean Corpuscular Volume 85 fL (80-100); Monocytes # (Auto) 0.8 Thou/mm3 (0.0-0.8); Monocytes % (Auto) 10 % (0-12); Neutrophils % (Auto) 71 % (37-80); Nucleated Red Blood Cell % 0 /100 WBC (0); Platelet Count 306 Thou/mm3 (140-440); RDW Standard Deviation 44.5 fL (35.1-43.9); Red Blood Count 4.93 Miln/mm3 (4.50-5.90); White Blood Count 8.4 Thou/mm3 (3.8-10.6)
--- NOTE | 2024-12-30 07:00 | EKG_ITS ---
[facility] Test Date: 2024-12-30 Pat Name: SACHIN MANN Department: Room: S370A Gender: Male [employer] Farmer: ASHLEY : 1945 Requested By: Brett Rojo Order Number: [id number] Reading MD: Brett Rojo Measurements Intervals [place] Rate: 86 P: [place]: QRS: -37 QRSD: 84 T: -67 QT: 366 QTc: 440 Interpretive Statements ATRIAL FLUTTER/TACHYCARDIA MARKED LEFT AXIS DEVIATION ST DEVIATION AND MODERATE T-WAVE ABNORMALITY, CONSIDER INFERIOR ISCHEMIA Compared to ECG 12/28/2024 08:18:05 Left-axis deviation now present T-wave abnormality now present Possible ischemia now present Left anterior fascicular block no longer present /store/S0/[id number]/[id number].pdf
[2024-12-30 08:06] LABS: Alanine Aminotransferase 16 U/L (10-49); Albumin, Serum 3.7 gm/dL (3.4-4.8); Albumin/Globulin Ratio 1.5 (1.2-2.2); Alkaline Phosphatase 60 U/L (46-116); Anion Gap 13 (7-16); BUN/Creatinine Ratio 7 Ratio (12-20); Bilirubin,Total 0.3 mg/dL (0.3-1.2); Blood Urea Nitrogen 7 mg/dL (9-23); Calcium 9.5 mg/dL (8.3-10.6); Calcium (Corrected) 9.7 mg/dL (8.5-10.1); Carbon Dioxide 22.3 mMol/L (20.0-31.0); Chloride 104 mMol/L (98-107); Estimated Creatinine Clearance 64.8 mL/min (>60); Globulin 2.5 gm/dL (2.3-3.5); Glucose 103 mg/dL (74-106); Magnesium 1.8 mg/dL (1.6-2.6); Osmolality,Calculated 275 (275-295); Phosphorous 3.3 mg/dL (2.4-5.1); Sodium 139 mMol/L (136-145); Total Protein 6.2 gm/dL (5.7-8.2); eGFR > 60 See Note
[2024-12-30 08:22] LABS: Aspartate Amino Transferase 16 U/L (0-34)
[2024-12-30] MEDS: TAMSULOSIN HCL 0.4 MG CAPSULE PO (08:34)
[2024-12-30] MEDS: AMIODARONE HCL 200 MG TABLET PO ×2 (08:35→21:39)
[2024-12-30] MEDS: APIXABAN 2.5 MG TABLET 5 MG PO ×2 (08:35→21:38)
--- NOTE | 2024-12-30 11:24 | EKG_ITS ---
[facility] Test Date: 2024-12-30 Pat Name: SACHIN MANN [facility] Gender[facility] Support Coordinator: BELINDA : 1945 Requested By: Markos Calloway Order Number: [id number] Reading MD: Markos Calloway Measurements Intervals [place] Rate: 119 P: [place]: QRS: -49 QRSD: 108 T: -12 QT: 343 QTc: 483 Interpretive Statements ATRIAL FLUTTER/TACHYCARDIA WITH RAPID VENTRICULAR RESPONSE MARKED LEFT AXIS DEVIATION Compared to ECG 12/30/2024 07:08:08 T-wave abnormality no longer present Possible ischemia no longer present /store/S0/[id number]/[id number].pdf
[2024-12-30] MEDS: POTASSIUM CHLORIDE 20 mEq TABCR 40 MEQ PO (14:22)
[2024-12-30] MEDS: Magnesium Sulfate 2 GM Ivpb 2 GM/50 ML BAG IV (14:23)
--- NOTE | 2024-12-30 16:19 | ESPR_ITS ---
<Statement entered by Toño Khanna MD - 01/01/25 14:43> I Toño Khanna MD reviewed the note and agree with the resident's assessment & plan with exceptions as below. I have personally reviewed labs, imaging, home meds/prior records, examined the patient, formulated and discussed management plan with the IM team. A 79-year-old male admitted for UTI and new onset atrial fibrillation/flutter. Currently rate is un-controlled Continue Eliquis and start on Amiodarone infusion,uptitrate metoprolol to 50 mg twice daily. Consult cardiology for potential cardioversion. Cont Abx, switch to rocephin, for E coli UTI. Documentation for date of: 12/30/24 Subjective Subjective Interval history: No acute overnight events. Denies new or worsening symptoms. Denies fever, chills, headaches, chest pain, sob, cough, GI or urinary symptoms. Exam Vital Signs Temp Pulse Resp BP Pulse Ox O2 Del Method 97.2 F 88 18 88/58 L 97 Nasal Cannula 12/30/24 12:00 12/30/24 14:23 12/30/24 12:00 12/30/24 14:23 12/30/24 12:00 12/30/24 12:00 Narrative Exam General: Alert and oriented x3. In no acute distress. Eyes: Pupils are equal and reactive to light bilaterally. HEENT: Atraumatic, normocephalic. No JVD noted. Mucosa moist. Cardiovascular: Normal S1 and S2. Irregularly irregular. No murmurs appreciated. No peripheral pitting edema noted. Respiratory: No respiratory distress. Lungs are clear to auscultation bilaterally. No wheezing or crackles heard. Abdomen: Soft, nontender, nondistended. Skin: No rash. Warm to touch. Musculoskeletal: No gross injuries. Able to move all 4 extremities. Neuro: Alert and oriented x3. No focal neuro deficits. Psych: Normal affect and mood Objective Labs 12/30/24 05:15 12/30/24 05:15 Labs: Laboratory Results - last 24 hr 12/30/24 05:15 WBC 8.4 RBC 4.93 Hgb 13.6 Hct 41.9 MCV 85 MCH 27.6 MCHC 32.5 RDW Std Deviation 44.5 H Plt Count 306 Neut % (Auto) 71 Lymph % (Auto) 17 [place] % (Auto) 10 Eos % (Auto) 3 Baso % (Auto) 0 Neut # (Auto) 6.0 Lymph # (Auto) 1.4 [place] # (Auto) 0.8 Eos # (Auto) 0.2 Baso # (Auto) 0.0 Immature Gran # (Auto) 0.01 H Absolute Nucleated RBC 0.00 Immature Gran % 0 Nucleated RBC % 0 Sodium 139 Potassium 4.0 Chloride 104 Carbon Dioxide 22.3 Anion Gap 13 BUN 7 L Creatinine 1.0 Estim Creat Clear Calc 64.8 eGFR > 60 BUN/Creatinine Ratio 7 L Glucose 103 Calculated Osmolality 275 Calcium 9.5 Corrected Calcium 9.7 Phosphorus 3.3 Magnesium 1.8 Total Bilirubin 0.3 AST 16 ALT 16 Alkaline Phosphatase 60 Total Protein 6.2 Albumin 3.7 Globulin 2.5 Albumin/Globulin Ratio 1.5 Quality Measures Quality Measures none Advance care planning discussed with:: patient Assessment & Plan Assessment Current Active Medications: Generic Name Dose Route Start Last Admin Trade Name Freq PRN Reason Stop Dose Admin Acetaminophen 650 mg 12/27/24 20:27 Acetaminophen 325 Mg Tablet PO 01/26/25 20:26 Q6H PRN Fever >100.4 Acetaminophen 1,000 mg 12/28/24 08:35 Acetaminophen 500 Mg Tablet PO 01/26/25 20:26 Q6H PRN PAIN SCALE 1-3 (mild Amiodarone HCl 200 mg 12/29/24 21:00 12/30/24 08:35 Amiodarone Hcl 200 Mg Tablet PO 01/28/25 20:59 200 mg BID KRYSTIN Administration Apixaban 5 mg 12/29/24 21:00 12/30/24 08:35 Apixaban 2.5 Mg Tablet PO 01/28/25 20:59 5 mg BID KRYSTIN Administration Amiodarone HCl/Dextrose 360 mg in 200 mls @ 33.333 mls/hr 12/29/24 19:00 12/30/24 14:23 Nexterone Ivpb IV 12/30/24 18:59 33.333 mls/hr .Q6H KRYSTIN Administration Protocol Ceftriaxone Sodium/Dextrose 1 gm in 50 mls @ 100 mls/hr 12/31/24 12:30 Rocephin/D5w 1gm Iv Premix IV 01/07/25 12:29 QDAY KRYSTIN Metoprolol Tartrate 25 mg 12/30/24 12:30 12/30/24 14:00 Metoprolol Tartrate 25 Mg Tablet PO 01/29/25 12:29 Not Given BID [facility] Ondansetron HCl 4 mg 12/27/24 20:27 Ondansetron Inj 2 Mg/Ml Inj 2 Ml IVP 01/26/25 20:26 Q6H PRN NAUSEA OR VOMITING Protocol Tamsulosin HCl 0.4 mg 12/28/24 09:00 12/30/24 08:34 Tamsulosin Hcl 0.4 Mg Capsule PO 01/27/25 08:59 0.4 mg QDAY [facility] Administration Plan 79-year-old male with no PMHx who presented to the ED due to fevers and chills. Patient will be admitted for management of UTI after failing outpatient therapy and new onset tachyarrhythmia. Appreciate recommendations from cardiology team. New onset atrial flutter On admission, had a spike of, HR 137, otherwise HR was maintaining around 80?90. On exam today he was found tachycardic, rhythm felt to be irregular. EKG showed atrial flutter with HR 118. No history of tachyarrhythmia, states he is usually bradycardic with HR 40-50. Report an episode of pre-syncope/syncope 5 years ago for which he came to ED and had negative work-up. States he followed up with Dr. Wren 5 years ago but work- up has been negative. Denies excessive caffeine intake (2 cups daily), alcohol, tobacco or drug use. No utox performed. Possibly new onset A-fib RVR in settings of UTI. [id number] 2, 2.2% annual stroke risk. HASBLED 1, 3.4% risk of major bleed. TSH 3.94. TG 72, cholesterol 111, LDL 70, HDL 27 EKG today showed a flutter again with RVR, HR poorly controlled. Continued AMIODARONE GGT, now on AMIODARONE p.o. and METOPROLOL. Cardiology is considering cardioversion if HR remains uncontrolled. ? Maintain K > 4.0 and Mg > 2.0 ? Continue AMIODARONE 200 mg BID ? Started METOPROLOL TARTRATE 25 mg BID. ? Pending further recommendations from cardiology Complicated E. coli UTI BPH Presenting with urinary symptoms, fever and chills after failing outpatient ABX. PCP started BACTRIM but appears he had allergic reaction with shaking and chills which is why he decided to come to ED. Previous urine culture grew E. coli, relatively al sensitive. Tmax 100.7 on presentation, currently afebrile, no leukocytosis. Urine culture grew E. coli. 48H blood culture negative. ZOSYN (12/28 to 12/29) ? Continue home TAMSULOSIN ? Continue CEFTRIAXONE (12/29 to present) Acute Kidney injury (resolved) CR 1.4 on presentation, baseline 0.8?1.0. Resolved with fluids. ? Renally dose meds, avoid overdiuresis and NEPHROTOXINS ? Daily CMP Electrolyte derangement Phosphorus 2.2, repleted ? Daily labs Health maintenance Diet: Cardiac diet GI prophylaxis: Not indicated DVT prophylaxis: HEPARIN subQ Antibiotics: ZOSYN CODE STATUS: DNR Disposition: Treating UTI, pending cx, pending cardio recs for arrhythmia Case was discussed with attending physician and senior resident. Markos Calloway DO PGYI This document was transcribed using voice recognition technology. Minor inaccuracies may be present.
--- NOTE | 2024-12-30 19:09 | ESPR_ITS ---
Documentation for date of: 12/30/24 Subjective Subjective Interval history: Patient seen and examined the bedside. Telemetry reviewed and the patient continues to be in atrial fibrillation but heart rate is better controlled at around 120 bpm. Patient was made to walk around on the floor and patient heart rate was less than 125 bpm. EKG repeated today and QTc is 480 ms and will continue with amiodarone Recommend to continue amiodarone drip at 1 mg/min for now along with Imdur 20 mg twice daily. Also started on metoprolol tartrate 25 mg twice daily and continue to monitor the blood pressure. Patient was having systolics around 90 mmHg in the morning and cannot uptitrate it more. Rich potassium greater than 4 and magnesium greater than 2.0 at all times. Continue telemetry monitoring for now If patient continues to be in RVR by Wednesday then plan is to do HUE with cardioversion. Discussed in detail with the patient, at the bedside Exam Vital Signs Temp Pulse Resp BP Pulse Ox O2 Del Method 97.2 F 98 18 88/58 L 97 Nasal Cannula 12/30/24 12:00 12/30/24 16:00 12/30/24 12:00 12/30/24 14:23 12/30/24 12:00 12/30/24 12:00 Objective Objective Narrative Objective Narrative: General: Alert and oriented x3. In no acute distress. Eyes: Pupils are equal and reactive to light bilaterally. HEENT: Atraumatic, normocephalic. No JVD noted. Mucosa moist. Cardiovascular: Normal S1 and S2. Irregularly irregular. No murmurs appreciated. No peripheral pitting edema noted. Respiratory: No respiratory distress. Lungs are clear to auscultation bilaterally. No wheezing or crackles heard. Abdomen: Soft, nontender, nondistended. Skin: No rash. Warm to touch. Musculoskeletal: No gross injuries. Able to move all 4 extremities. Neuro: Alert and oriented x3. No focal neuro deficits. Psych: Normal affect and mood Labs 12/30/24 05:15 12/30/24 05:15 Labs: Laboratory Results - last 24 hr 12/30/24 05:15 WBC 8.4 RBC 4.93 Hgb 13.6 Hct 41.9 MCV 85 MCH 27.6 MCHC 32.5 RDW Std Deviation 44.5 H Plt Count 306 Neut % (Auto) 71 Lymph % (Auto) 17 [place] % (Auto) 10 Eos % (Auto) 3 Baso % (Auto) 0 Neut # (Auto) 6.0 Lymph # (Auto) 1.4 [place] # (Auto) 0.8 Eos # (Auto) 0.2 Baso # (Auto) 0.0 Immature Gran # (Auto) 0.01 H Absolute Nucleated RBC 0.00 Immature Gran % 0 Nucleated RBC % 0 Sodium 139 Potassium 4.0 Chloride 104 Carbon Dioxide 22.3 Anion Gap 13 BUN 7 L Creatinine 1.0 Estim Creat Clear Calc 64.8 eGFR > 60 BUN/Creatinine Ratio 7 L Glucose 103 Calculated Osmolality 275 Calcium 9.5 Corrected Calcium 9.7 Phosphorus 3.3 Magnesium 1.8 Total Bilirubin 0.3 AST 16 ALT 16 Alkaline Phosphatase 60 Total Protein 6.2 Albumin 3.7 Globulin 2.5 Albumin/Globulin Ratio 1.5 Assessment & Plan A&P Narrative A 79-year-old male with a past medical history of BPH on Flomax, history of urinary retention and hydronephrosis previously followed by urology in [place], and a rectal adenoma,Anxiety, presented to the emergency department for further evaluation of UTI not resolving to treatment as outpatient. Patient was admitted to the hospital and was started on IV antibiotics and had mild acute kidney injury on admission. Patient did develop atrial flutter with variable block with a rate of 120 bpm and later on was in atrial fibrillation. Cardiology was consulted for further evaluation. Patient denies any chest pain chest pressure shortness of breath orthopnea PND dizziness or leg swelling. His main complaints have been the urinary complaints. Denied having any previous heart disease. He was evaluated more than 5 years ago for an abnormal EKG and he had complete testing done including an echo and stress test at that point of time which were normal. He did not follow-up with cardiology since then Assessment and plan 1. New onset atrial flutter with variable plaques/atrial fibrillation 2. SIRS secondary to UTI 3. Acute kidney injury 4. BPH 5. Complicated UTI 6. History of urinary retention with hydronephrosis follows with urology in [place] Patient has new onset paroxysmal atrial flutter/fibrillation. Patient has never been diagnosed with A-fib or atrial flutter. Patient was started on amiodarone bolus and drip by the primary team and rate is well-controlled right now at 70 to 80 bpm on amiodarone drip but he is still in atrial fibrillation with intermittent atrial flutter. Recommend to continue the amiodarone drip as per the protocol. If patient blood pressure is permissible during recommend to start metoprolol XL for rate control. If blood pressure is low normal or hypotensive secondary to the complicated UTI answers then patient can be transition to oral amiodarone 200 mg twice daily. Continue heparin drip for anticoagulation and patient should be transition to oral Eliquis 5 mg twice daily if no further procedures are planned. Discussed in detail about the atrial fibrillation with the and patient at the bedside. Echocardiogram showed normal LV function and RV function EF of 60 to 65% without major valvular abnormalities. Does have left atrial dilatation. 12/30/2024: Telemetry reviewed and the patient continues to be in atrial fibrillation but heart rate is better controlled at around 120 bpm. Patient was made to walk around on the floor and patient heart rate was less than 125 bpm. EKG repeated today and QTc is 480 ms and will continue with amiodarone Recommend to continue amiodarone drip at 1 mg/min for now along with Imdur 20 mg twice daily. Also started on metoprolol tartrate 25 mg twice daily and continue to monitor the blood pressure. Patient was having systolics around 90 mmHg in the morning and cannot uptitrate it more. Rich potassium greater than 4 and magnesium greater than 2.0 at all times. Continue telemetry monitoring for now If patient continues to be in RVR by Wednesday then plan is to do HUE with cardioversion. Discussed in detail with the patient, at the bedside Patient at baseline has bradycardia with heart rate in the 40s to 50s. Will continue to follow the patient and see if there is evidence of any tachybradycardia syndrome. Management of rest of the medical conditions as per primary team and other consultants. Thank you for the consult and allowing me to participate in the care of the patient. Cardiology will continue to follow. Brett Rojo M.D. Interventional Cardiology Time Spent With Patient Time: Total time spent is greater than 50% in coordination of care (as documented) at patient's floor/unit and/or counseling patient:
[2024-12-30] MEDS: AMIODARONE 360 MG IVPB 360 MG/200 ML BAG 33.33 MG IV (21:03)
[2024-12-31] VITALS (16 sets, daily range): BP systolic 99–123; BP diastolic 63–83; PULSE 68–101; RESP 19; TEMP 36.2–37; O2SAT 94–95
[2024-12-31] MEDS: AMIODARONE 360 MG IVPB 360 MG/200 ML BAG 33.33 MG IV ×3 (03:22→14:52)
[2024-12-31 07:12] LABS: Basophils % (Auto) 1 % (0-2.5); Eosinophils # (Auto) 0.2 Thou/mm3 (0.0-0.5); Eosinophils % (Auto) 3 % (0-10); Hematocrit 41.2 % (41.0-53.0); Hemoglobin 13.4 g/dL (13.5-16.0); Immature Granulocytes % (Auto) 0 % (0-0); Immature Granulocytes Auto 0.02 Thou/mm3 (0.00-0.00); Lymphocytes # (Auto) 1.4 Thou/mm3 (1.0-4.8); Lymphocytes % (Auto) 19 % (10-50); Mean Corpuscular HGB Conc 32.5 g/dl (31.0-37.0); Mean Corpuscular Hemoglobin 27.5 pg (25.0-35.0); Mean Corpuscular Volume 85 fL (80-100); Monocytes # (Auto) 0.5 Thou/mm3 (0.0-0.8); Monocytes % (Auto) 7 % (0-12); Neutrophils # (Auto) 5.4 Thou/mm3 (1.8-7.7); Neutrophils % (Auto) 71 % (37-80); Nucleated Red Blood Cell % 0 /100 WBC (0); Platelet Count 316 Thou/mm3 (140-440); RDW Standard Deviation 44.3 fL (35.1-43.9); Red Blood Count 4.87 Miln/mm3 (4.50-5.90); White Blood Count 7.7 Thou/mm3 (3.8-10.6)
[2024-12-31 07:38] LABS: Alanine Aminotransferase 19 U/L (10-49); Albumin, Serum 3.6 gm/dL (3.4-4.8); Albumin/Globulin Ratio 1.2 (1.2-2.2); Alkaline Phosphatase 65 U/L (46-116); Anion Gap 7 (7-16); Aspartate Amino Transferase 18 U/L (0-34); BUN/Creatinine Ratio 7 Ratio (12-20); Bilirubin,Total 0.2 mg/dL (0.3-1.2); Blood Urea Nitrogen 8 mg/dL (9-23); Calcium 8.7 mg/dL (8.3-10.6); Carbon Dioxide 27.4 mMol/L (20.0-31.0); Chloride 106 mMol/L (98-107); Creatinine (Component) 1.1 mg/dL (0.6-1.3); Estimated Creatinine Clearance 57.1 mL/min (>60); Globulin 2.9 gm/dL (2.3-3.5); Glucose 175 mg/dL (74-106); Osmolality,Calculated 281 (275-295); Phosphorous 2.7 mg/dL (2.4-5.1); Potassium 3.9 mMol/L (3.4-5.1); Sodium 140 mMol/L (136-145); Total Protein 6.5 gm/dL (5.7-8.2); eGFR > 60 See Note
[2024-12-31] MEDS: Magnesium Sulfate 2 GM Ivpb 2 GM/50 ML BAG IV (08:38)
[2024-12-31] MEDS: TAMSULOSIN HCL 0.4 MG CAPSULE PO (08:39)
[2024-12-31] MEDS: METOPROLOL TARTRATE 25 MG TABLET PO ×3 (08:39→22:21)
[2024-12-31] MEDS: AMIODARONE HCL 200 MG TABLET PO ×2 (08:40→20:34)
[2024-12-31] MEDS: POTASSIUM CHLORIDE 20 mEq TABCR PO (08:40)
[2024-12-31] MEDS: APIXABAN 2.5 MG TABLET 5 MG PO ×2 (08:40→20:34)
[2024-12-31] MEDS: POTASSIUM CHLORIDE 20 mEq TABCR 40 MEQ PO (15:12)
[2024-12-31] MEDS: cefTRIAXone/D5w 1gm IV premix 1 GM/50 ML BAG IV (15:12)
--- NOTE | 2024-12-31 15:49 | ESPR_ITS ---
Documentation for date of: 12/31/24 Subjective Subjective Interval history: Patient seen and examined the bedside. Telemetry reviewed and the patient continues to be in atrial fibrillation but heart rate is better controlled between 60-100 bpm even with walking. Recommend to continue amiodarone drip at 1 mg/min for now along with amiodarone 200 mg twice daily. Also started on metoprolol tartrate 25 mg twice daily and continue to monitor the blood pressure. Patient was having systolics around 90 mmHg in the morning and cannot uptitrate it more. Rich potassium greater than 4 and magnesium greater than 2.0 at all times. Continue telemetry monitoring for now If patient continues to be in RVR by Wednesday then plan is to do HUE with cardioversion. Discussed in detail with the patient, at the bedside Exam Vital Signs Temp Pulse Resp BP Pulse Ox O2 Del Method 97.1 F 74 19 99/63 94 L Room Air 12/31/24 15:41 12/31/24 15:41 12/31/24 15:41 12/31/24 15:41 12/31/24 15:41 12/31/24 15:41 Narrative Exam General: Alert and oriented x3. In no acute distress. Eyes: Pupils are equal and reactive to light bilaterally. HEENT: Atraumatic, normocephalic. No JVD noted. Mucosa moist. Cardiovascular: Normal S1 and S2. Irregularly irregular. No murmurs appreciated. No peripheral pitting edema noted. Respiratory: No respiratory distress. Lungs are clear to auscultation bilaterally. No wheezing or crackles heard. Abdomen: Soft, nontender, nondistended. Skin: No rash. Warm to touch. Musculoskeletal: No gross injuries. Able to move all 4 extremities. Neuro: Alert and oriented x3. No focal neuro deficits. Psych: Normal affect and mood Objective Labs 12/31/24 06:55 12/31/24 06:55 Labs: Laboratory Results - last 24 hr 12/31/24 06:55 WBC 7.7 RBC 4.87 Hgb 13.4 L Hct 41.2 MCV 85 MCH 27.5 MCHC 32.5 RDW Std Deviation 44.3 H Plt Count 316 Neut % (Auto) 71 Lymph % (Auto) 19 [place] % (Auto) 7 Eos % (Auto) 3 Baso % (Auto) 1 Neut # (Auto) 5.4 Lymph # (Auto) 1.4 Mobile # (Auto) 0.5 Eos # (Auto) 0.2 Baso # (Auto) 0.0 Immature Gran # (Auto) 0.02 H Absolute Nucleated RBC 0.00 Immature Gran % 0 Nucleated RBC % 0 Sodium 140 Potassium 3.9 Chloride 106 Carbon Dioxide 27.4 Anion Gap 7 BUN 8 L Creatinine 1.1 Estim Creat Clear Calc 57.1 L eGFR > 60 BUN/Creatinine Ratio 7 L Glucose 175 H D Calculated Osmolality 281 Calcium 8.7 Corrected Calcium 9.0 Phosphorus 2.7 Magnesium 2.0 Total Bilirubin 0.2 L AST 18 ALT 19 Alkaline Phosphatase 65 Total Protein 6.5 Albumin 3.6 Globulin 2.9 Albumin/Globulin Ratio 1.2 Assessment & Plan A&P Narrative A 79-year-old male with a past medical history of BPH on Flomax, history of urinary retention and hydronephrosis previously followed by urology in [place], and a rectal adenoma,Anxiety, presented to the emergency department for further evaluation of UTI not resolving to treatment as outpatient. Patient was admitted to the hospital and was started on IV antibiotics and had mild acute kidney injury on admission. Patient did develop atrial flutter with variable block with a rate of 120 bpm and later on was in atrial fibrillation. Cardiology was consulted for further evaluation. Patient denies any chest pain chest pressure shortness of breath orthopnea PND dizziness or leg swelling. His main complaints have been the urinary complaints. Denied having any previous heart disease. He was evaluated more than 5 years ago for an abnormal EKG and he had complete testing done including an echo and stress test at that point of time which were normal. He did not follow-up with cardiology since then Assessment and plan 1. New onset atrial flutter with variable plaques/atrial fibrillation 2. SIRS secondary to UTI 3. Acute kidney injury 4. BPH 5. Complicated UTI 6. History of urinary retention with hydronephrosis follows with urology in [place] Patient has new onset paroxysmal atrial flutter/fibrillation. Patient has never been diagnosed with A-fib or atrial flutter. Patient was started on amiodarone bolus and drip by the primary team and rate is well-controlled right now at 70 to 80 bpm on amiodarone drip but he is still in atrial fibrillation with intermittent atrial flutter. Recommend to continue the amiodarone drip as per the protocol. If patient blood pressure is permissible during recommend to start metoprolol XL for rate control. If blood pressure is low normal or hypotensive secondary to the complicated UTI answers then patient can be transition to oral amiodarone 200 mg twice daily. Continue heparin drip for anticoagulation and patient should be transition to oral Eliquis 5 mg twice daily if no further procedures are planned. Discussed in detail about the atrial fibrillation with the and patient at the bedside. Echocardiogram showed normal LV function and RV function EF of 60 to 65% without major valvular abnormalities. Does have left atrial dilatation. 12/31/2024: Telemetry reviewed and the patient continues to be in atrial fibrillation but heart rate is better controlled between 60-100 bpm even with walking. Recommend to continue amiodarone drip at 1 mg/min for now along with amiodarone 200 mg twice daily. Also started on metoprolol tartrate 25 mg twice daily and continue to monitor the blood pressure. Patient was having systolics around 90 mmHg in the morning and cannot uptitrate it more. Rich potassium greater than 4 and magnesium greater than 2.0 at all times. Continue telemetry monitoring for now If patient continues to be in RVR by Wednesday then plan is to do HUE with cardioversion. Discussed in detail with the patient, at the bedside Patient at baseline has bradycardia with heart rate in the 40s to 50s. Will continue to follow the patient and see if there is evidence of any tachybradycardia syndrome. Management of rest of the medical conditions as per primary team and other consultants. Thank you for the consult and allowing me to participate in the care of the patient. Cardiology will continue to follow. Brett Rojo M.D. Interventional Cardiology Time Spent With Patient Time: Total time spent is greater than 50% in coordination of care (as documented) at patient's floor/unit and/or counseling patient:
--- NOTE | 2024-12-31 16:05 | ESPR_ITS ---
<Statement entered by Toño Khanna MD - 01/01/25 14:45> I Toño Khanna MD reviewed the note and agree with the resident's assessment & plan with exceptions as below. I have personally reviewed labs, imaging, home meds/prior records, examined the patient, formulated and discussed management plan with the IM team. A 79-year-old male admitted for UTI and new onset atrial fibrillation/flutter. Currently rate is better controlled Continue Eliquis and s switch amiodarone to p.o. 200 mg twice daily following completion of 24-hour infusion,uptitrate metoprolol to 25 mg 3 times daily. Cardiology on board, plan for cardioversion likely tomorrow. Cont rocephin, for E coli UTI. 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 Currently patient on amiodarone GGT and p.o. along with metoprolol tartrate 25 twice daily. If patient continues to be RVR by tomorrow, patient will undergo HUE with cardioversion per cardiology recommendations. We will continue treatment of complicated UTI with Rocephin and will transition to p.o. abx upon discharge. Exam Vital Signs Temp Pulse Resp BP Pulse Ox O2 Del Method 97.1 F 74 19 99/63 94 L Room Air 12/31/24 15:41 12/31/24 15:41 12/31/24 15:41 12/31/24 15:41 12/31/24 15:41 12/31/24 15:41 Narrative Exam General: Alert and oriented x3. In no acute distress. Eyes: Pupils are equal and reactive to light bilaterally. HEENT: Atraumatic, normocephalic. No JVD noted. Mucosa moist. Cardiovascular: Normal S1 and S2. Irregularly irregular. No murmurs appreciated. No peripheral pitting edema noted. Respiratory: No respiratory distress. Lungs are clear to auscultation bilaterally. No wheezing or crackles heard. Abdomen: Soft, nontender, nondistended. Skin: No rash. Warm to touch. Musculoskeletal: No gross injuries. Able to move all 4 extremities. Neuro: Alert and oriented x3. No focal neuro deficits. Psych: Normal affect and mood Objective Labs 12/31/24 06:55 12/31/24 06:55 Labs: Laboratory Results - last 24 hr 12/31/24 06:55 WBC 7.7 RBC 4.87 Hgb 13.4 L Hct 41.2 MCV 85 MCH 27.5 MCHC 32.5 RDW Std Deviation 44.3 H Plt Count 316 Neut % (Auto) 71 Lymph % (Auto) 19 [place] % (Auto) 7 Eos % (Auto) 3 Baso % (Auto) 1 Neut # (Auto) 5.4 Lymph # (Auto) 1.4 [place] # (Auto) 0.5 Eos # (Auto) 0.2 Baso # (Auto) 0.0 Immature Gran # (Auto) 0.02 H Absolute Nucleated RBC 0.00 Immature Gran % 0 Nucleated RBC % 0 Sodium 140 Potassium 3.9 Chloride 106 Carbon Dioxide 27.4 Anion Gap 7 BUN 8 L Creatinine 1.1 Estim Creat Clear Calc 57.1 L eGFR > 60 BUN/Creatinine Ratio 7 L Glucose 175 H D Calculated Osmolality 281 Calcium 8.7 Corrected Calcium 9.0 Phosphorus 2.7 Magnesium 2.0 Total Bilirubin 0.2 L AST 18 ALT 19 Alkaline Phosphatase 65 Total Protein 6.5 Albumin 3.6 Globulin 2.9 Albumin/Globulin Ratio 1.2 Quality Measures Quality Measures none Advance care planning discussed with:: patient Assessment & Plan Assessment Current Active Medications: Generic Name Dose Route Start Last Admin Trade Name Mitchq PRN Reason Stop Dose Admin Acetaminophen 650 mg 12/27/24 20:27 Acetaminophen 325 Mg Tablet PO 01/26/25 20:26 Q6H PRN Fever >100.4 Acetaminophen 1,000 mg 12/28/24 08:35 Acetaminophen 500 Mg Tablet PO 01/26/25 20:26 Q6H PRN PAIN SCALE 1-3 (mild Amiodarone HCl 200 mg 12/29/24 21:00 12/31/24 08:40 Amiodarone Hcl 200 Mg Tablet PO 01/28/25 20:59 200 mg BID KRYSTIN Administration Apixaban 5 mg 12/29/24 21:00 12/31/24 08:40 Apixaban 2.5 Mg Tablet PO 01/28/25 20:59 5 mg BID KRYSTIN Administration Ceftriaxone Sodium/Dextrose 1 gm in 50 mls @ 100 mls/hr 12/31/24 12:30 12/31/24 15:12 Rocephin/D5w 1gm Iv Premix IV 01/07/25 12:29 100 mls/hr QDAY KRYSTIN Administration Amiodarone HCl/Dextrose 360 mg in 200 mls @ 33.33 mls/hr 12/30/24 19:26 12/31/24 14:52 Nexterone Ivpb IV 12/31/24 19:25 33.33 mls/hr .Q6H1M KRYSTIN Administration Metoprolol Tartrate 25 mg 12/31/24 14:00 12/31/24 15:12 Metoprolol Tartrate 25 Mg Tablet PO 01/30/25 13:59 25 mg TID KRYSTIN Administration Ondansetron HCl 4 mg 12/27/24 20:27 Ondansetron Inj 2 Mg/Ml Inj 2 Ml IVP 01/26/25 20:26 Q6H PRN NAUSEA OR VOMITING Protocol Tamsulosin HCl 0.4 mg 12/28/24 09:00 12/31/24 08:39 Tamsulosin Hcl 0.4 Mg Capsule PO 01/27/25 08:59 0.4 mg QDAY KRYSTIN Administration Plan 79-year-old male with no PMHx who presented to the ED due to fevers and chills. Patient will be admitted for management of UTI after failing outpatient therapy and new onset tachyarrhythmia. Appreciate recommendations from cardiology team. New onset atrial flutter On admission, had a spike of, HR 137, otherwise HR was maintaining around 80?90. On exam today he was found tachycardic, rhythm felt to be irregular. EKG showed atrial flutter with HR 118. No history of tachyarrhythmia, states he is usually bradycardic with HR 40-50. Report an episode of pre-syncope/syncope 5 years ago for which he came to ED and had negative work-up. States he followed up with Dr. Wren 5 years ago but work- up has been negative. Denies excessive caffeine intake (2 cups daily), alcohol, tobacco or drug use. No utox performed. Possibly new onset A-fib RVR in settings of UTI. [id number] 2, 2.2% annual stroke risk. HASBLED 1, 3.4% risk of major bleed. TSH 3.94. TG 72, cholesterol 111, LDL 70, HDL 27 EKG today showed a flutter again with RVR, HR poorly controlled. Continued AMIODARONE GGT, now on AMIODARONE p.o. and METOPROLOL. Cardiology is considering cardioversion if HR remains uncontrolled. ? Maintain K > 4.0 and Mg > 2.0 ? Continue AMIODARONE 200 mg BID - Continue AMIODARONE ggt ? Continue METOPROLOL TARTRATE 25 mg BID. ? Possible HUE with cardioversion if patient continues with flutter RVR - Cardiology Dr. Alia wolff, recommendations are greatly appreciated Complicated E. coli UTI BPH Presenting with urinary symptoms, fever and chills after failing outpatient ABX. PCP started BACTRIM but appears he had allergic reaction with shaking and chills which is why he decided to come to ED. Previous urine culture grew E. coli, relatively al sensitive. Tmax 100.7 on presentation, currently afebrile, no leukocytosis. Urine culture grew E. coli. 48H blood culture negative. ZOSYN (12/28 to 12/29) ? Continue home TAMSULOSIN ? Continue CEFTRIAXONE (12/29 to present) Acute Kidney injury (resolved) CR 1.4 on presentation, baseline 0.8?1.0. Resolved with fluids. ? Renally dose meds, avoid overdiuresis and NEPHROTOXINS ? Daily CMP Electrolyte derangement Phosphorus 2.2, repleted ? Daily labs Health maintenance Diet: Cardiac diet GI prophylaxis: Not indicated DVT prophylaxis: HEPARIN subQ Antibiotics: ZOSYN CODE STATUS: DNR Disposition: Treating UTI, pending cx, pending cardio recs for arrhythmia This patient care was discussed with my attending Dr. Jey Guzman MD PGY-2 Disclaimer: Minor errors in boring machine operator vertical may be present since this note was dictated by speech recognition software.
--- NOTE | 2024-12-31 19:30 | PC.NURSE ---
Patient up and ambulating around the unit, amiodarone drip still infusing, cardiac rhythm on atrial flutter at the rate of 70's. Denies any chest discomfort.
[2025-01-01] VITALS (23 sets, daily range): BP systolic 82–132; BP diastolic 55–97; PULSE 41–105; RESP 12–29; TEMP 36.2–36.7; O2SAT 91–98
[2025-01-01] MEDS: METOPROLOL TARTRATE 25 MG TABLET PO (05:10)
[2025-01-01 06:23] LABS: Basophils # (Auto) 0.1 Thou/mm3 (0.0-0.2); Basophils % (Auto) 1 % (0-2.5); Eosinophils # (Auto) 0.2 Thou/mm3 (0.0-0.5); Eosinophils % (Auto) 2 % (0-10); Hematocrit 37.6 % (41.0-53.0); Hemoglobin 12.4 g/dL (13.5-16.0); Immature Granulocytes % (Auto) 0 % (0-0); Immature Granulocytes Auto 0.03 Thou/mm3 (0.00-0.00); Lymphocytes % (Auto) 12 % (10-50); Mean Corpuscular Hemoglobin 27.6 pg (25.0-35.0); Mean Corpuscular Volume 84 fL (80-100); Monocytes # (Auto) 0.8 Thou/mm3 (0.0-0.8); Monocytes % (Auto) 8 % (0-12); Neutrophils % (Auto) 77 % (37-80); Nucleated Red Blood Cell % 0 /100 WBC (0); Platelet Count 305 Thou/mm3 (140-440); RDW Standard Deviation 43.8 fL (35.1-43.9); Red Blood Count 4.49 Miln/mm3 (4.50-5.90); White Blood Count 9.1 Thou/mm3 (3.8-10.6)
[2025-01-01 06:50] LABS: Alanine Aminotransferase 22 U/L (10-49); Albumin, Serum 3.4 gm/dL (3.4-4.8); Albumin/Globulin Ratio 1.3 (1.2-2.2); Alkaline Phosphatase 65 U/L (46-116); Anion Gap 6 (7-16); Aspartate Amino Transferase 20 U/L (0-34); BUN/Creatinine Ratio 9 Ratio (12-20); Bilirubin,Total 0.4 mg/dL (0.3-1.2); Blood Urea Nitrogen 10 mg/dL (9-23); Calcium 8.7 mg/dL (8.3-10.6); Calcium (Corrected) 9.2 mg/dL (8.5-10.1); Carbon Dioxide 25.8 mMol/L (20.0-31.0); Chloride 109 mMol/L (98-107); Creatinine (Component) 1.1 mg/dL (0.6-1.3); Estimated Creatinine Clearance 57.1 mL/min (>60); Globulin 2.7 gm/dL (2.3-3.5); Glucose 100 mg/dL (74-106); Osmolality,Calculated 280 (275-295); Phosphorous 2.3 mg/dL (2.4-5.1); Potassium 4.2 mMol/L (3.4-5.1); Sodium 141 mMol/L (136-145); Total Protein 6.1 gm/dL (5.7-8.2); eGFR > 60 See Note
[2025-01-01] MEDS: NAPH,KPH MBDB 1 PACKET (1.5 GM) PO (07:39)
[2025-01-01] MEDS: cefTRIAXone/D5w 1gm IV premix 1 GM/50 ML BAG IV (08:02)
[2025-01-01] MEDS: AMIODARONE HCL 200 MG TABLET PO (08:02)
[2025-01-01] MEDS: TAMSULOSIN HCL 0.4 MG CAPSULE PO (08:03)
--- NOTE | 2025-01-01 08:14 | EKG_ITS ---
[facility] Test Date: 2025-01-01 Pat Name: SACHIN MANN [facility] Power Generation Engineer: KARIN : 1945 Requested By: Markos Calloway Order Number: [id number] Reading MD: Markos Calloway Measurements Intervals [place] Rate: 70 P: VA: QRS: -13 QRSD: 111 T: 0 QT: 225 QTc: 243 Interpretive Statements SINUS RHYTHM WITH 2ND DEGREE AV BLOCK, MOBITZ TYPE II MODERATE INTRAVENTRICULAR CONDUCTION DELAY NONSPECIFIC T-WAVE ABNORMALITY Compared to ECG 12/30/2024 11:37:32 Intraventricular conduction delay now present T-wave abnormality now present Atrial flutter no longer present Left-axis deviation no longer present /store/S0/[id number].pdf
[2025-01-01] MEDS: APIXABAN 2.5 MG TABLET 5 MG PO (11:26)
--- NOTE | 2025-01-01 11:45 | ECHO_ITS ---
Transesophageal Echo Report Ht (in): 70 Wt (lb): 170 Exam Location: Echo Lab Status: Inpatient Business Professor: Demarco Ivis Indications: Procedure Performed: BP: 127 / 98 HR: 97 FINDINGS Left Ventricle Normal left ventricular size, wall thickness, systolic function with no obvious regional wall motion abnormalities. The ejection fraction is visually estimated at 60%. Right Ventricle The right ventricle is normal in size and systolic function. Left Atrium The left atrium is normal by two-dimensional, color flow and Doppler imaging with no structural abnormalities, no thrombus formation present. Right Atrium The right atrium is normal by two-dimensional imaging, color flow and Doppler imaging with no structural abnormalities, no thrombus formation present. Atrial Appendages The left atrial appendage appears normal with no evidence for thrombus. Atrial Septum The interatrial septum appears normal with no evidence of a shunt. Bubble study negative for PFO/ASD. Aorta The aorta is normal by two-dimensional, color flow and Doppler interrogation. Mitral Valve The mitral valve is normal by two-dimensional, color flow and Doppler interrogation. There is trace mitral regurgitation. Aortic Valve The aortic valve is trileaflet and normal by two-dimensional, color flow and Doppler interrogation. There is trace aortic valve regurgitation. Tricuspid Valve The tricuspid valve is normal by two-dimensional, color flow and Doppler interrogation. There is mild tricuspid regurgitation. Pericardium The pericardium is normal by two-dimensional imaging. There is no significant pericardial effusion. CONCLUSIONS Indications: Atrial Flutter and rule out NINA thrombus for cardioversion. No evidence of any LA or NINA thrombus. Bubble study negative for PFO or ASD. Normal LV size and function with an EF of 60 to 65%. Normal RV size and function. Mild TR. Trace MR, AI. No Pericardial Effusion. Brett Rojo (Electronically Signed) Final Date: 01 January 2025 18:39
[2025-01-01] MEDS: BENZOCAINE 20% (Hurricaine) SPRAY 1 DOSE TOP (12:12)
[2025-01-01] MEDS: fentaNYL CIT INJ 50 mCg/ML AMP 2ML 100 MCG IVP (12:12)
[2025-01-01] MEDS: MIDAZOLAM INJ 1 MG/ML VIAL 2 ML 4.5 MG IV (12:12)
--- NOTE | 2025-01-01 12:30 | PD.CARDOPNOT ---
Procedure Direct current cardioversion for uncontrolled atrial flutter Moderate Conscious Sedation with Versed and Fentanyl Date of Procedure 01/01/25 Pre Op Diagnosis Atrial Fibrillation / Flutter Indication Atrial Fibrillation / Flutter Post Op Diagnosis Normal Sinus Rhythm restored. Procedure Description Patient was in atrial flutter/ fibrillation and ventricular rate was controlled. Patient continued to have RVR episodes Discussed with the patient that his benefits and modalities of performing a HUE as well as electrocardioversion which patient agreed. Transesophageal echocardiogram was completed today and did not show any significant LA or NINA thrombus.? Please see HUE report from today for rest of the findings.? Patient was already on anticoagulation with eliquis.. Patient was taken to the paint laboratory technician for the HUE and cardioversion, both anterior and posterior pads were placed.? Patient was given moderate sedation and received a total of 4.5 mg Versed and 100 mcg of fentanyl prior to the procedure to provide him enough for sedation. A biphasic defibrillator was used.? A single 75J synchronized shock was given and the patient converted successfully into normal sinus rhythm.? No complications during or after the procedure.? Patient is doing well.? His heart rate was stable between 40-60 bpm and was in normal sinus rhythm on the telemetry.? Recommend to perform an EKG to document normal sinus rhythm postprocedure.? Patient will be monitored in the paint laboratory technician for the next 1-2 hours and will be discharged home later today if hemodynamically stable. Estimated Blood Loss 0 Specimen(s) Specimen(s): None Conclusion Successful direct current cardioversion of Atrial Fibrillation / Flutter to Normal Sinus Rhythm - Sinus bradycardia. Recommendation Recommend to decrease metoprolol XL 25 mg once daily given his sinus bradycardia after cardioversion. Recommend to decrease amiodarone to 200 mg once daily Continue Eliquis 5 mg BID for anticaogulation. EKG to document NSR post procedure. No driving for 24 hours. Patient recommended to follow up in 1 week in the clinic. Surgical Staff Surgeon: Brett Rojo MD
--- NOTE | 2025-01-01 12:59 | EKG_ITS ---
[facility] Test Date: 2025-01-01 Pat Name: SACHIN MANN [facility] Director Software Quality Assurance: : 1945 Requested By: Brett Rojo Order Number: [id number] Reading MD: Brett Rojo Measurements Intervals [place] Rate: 40 P: 18 SC: 220 QRS: -20 QRSD: 109 T: -12 QT: 570 QTc: 470 Interpretive Statements SINUS BRADYCARDIA WITH FIRST DEGREE AV BLOCK NONSPECIFIC ST & T-WAVE ABNORMALITY PROLONGED QT INTERVAL Compared to ECG 01/01/2025 08:27:22 First degree AV block now present Prolonged QT interval now present Sinus rhythm no longer present Intraventricular conduction delay no longer present T-wave abnormality still present /store/S0/[id number]/[id number].pdf
--- NOTE | 2025-01-01 13:53 | PC.NURSE ---
patient awake, alert, breathing unlabored, report given to Erika RN, covering RN for Jasmin RN, patient will be transferred back to [facility] 350
--- NOTE | 2025-01-01 14:00 | PC.NURSE ---
1245 patient sleepy and arousable, breathing unlabored, s/p HUE and cardioverision by Dr. rojo, patient converted to sinus bradycardia and will be recovered in manager lab bay 8. Heart rate 40's Dr. Rojo aware, no new orders made at this time. 12 lead EKG ordered. 1307 12 lead EKG completed 1330 patient is more awake, will get patient ready to go back to room after having sips of water and is able to swallow 1400 patient is awake, alert, breathing unlabored, patient able to tolerate pudding and water with no nausea, vomiting or difficulty swallowing. 12 lead EKG completed and read by MD. Report given to Erika HORAN, covering RN for Jasmin. Patient transferred back to room 350, accompanied by Rosangela.
--- NOTE | 2025-01-01 14:00 | PD.IMPROG ---
Documentation for date of: 01/01/25 Subjective Subjective Interval history: Patient seen and examined the bedside. Telemetry reviewed and the patient continues to be in atrial fibrillation but heart rate is better controlled between 60-100 bpm even with walking but still continues to be in atrial flutter with variable block even after the amiodarone drip, oral amiodarone as well as metoprolol. Given his continuous atrial flutter with variable block patient was recommended HUE and cardioversion. Patient denies any kind of swallowing problems or any kind of esophageal interventions or previous surgeries. Patient denies any kind of gastric ulcers bleeding and any other hematemesis or hematochezia. Patient denies any issues with anesthesia previously. Patient explained all the risks, benefits and alternatives of HUE including the risk of perforation, bleeding, respiratory failure secondary to sedation, injury to teeth gums esophagus and stomach. Patient understands all risks and benefits and provided consent for the procedure. We will keep him n.p.o. overnight and plan for HUE in the morning. HUE completed on 01/01/2025 showed no evidence of any NINA thrombus. Bubble study was negative for PFO or ASD. Normal LV and RV function. Patient was successfully cardioverted with 1 x 75 J shock with which he converted to normal sinus rhythm but EKG after the procedure showed that patient was sinus bradycardia and decrease the amiodarone to 200 mg once daily and the metoprolol XL 25 mg once daily at the time of discharge. Patient should be discharged on Eliquis 5 mg twice daily for anticoagulation. Patient recommended to follow-up with me in the office in 7 days. Exam Vital Signs Temp Pulse Resp BP Pulse Ox O2 Del Method O2 Flow Rate 97.1 F 61 21 H 90/59 L 94 L Room Air 2 01/01/25 16:03 01/01/25 16:03 01/01/25 16:03 01/01/25 16:03 01/01/25 16:03 01/01/25 16:03 01/01/25 14:37 Narrative Exam General: Alert and oriented x3. In no acute distress. Eyes: Pupils are equal and reactive to light bilaterally. HEENT: Atraumatic, normocephalic. No JVD noted. Mucosa moist. Cardiovascular: Normal S1 and S2. Irregularly irregular. No murmurs appreciated. No peripheral pitting edema noted. Respiratory: No respiratory distress. Lungs are clear to auscultation bilaterally. No wheezing or crackles heard. Abdomen: Soft, nontender, nondistended. Skin: No rash. Warm to touch. Musculoskeletal: No gross injuries. Able to move all 4 extremities. Neuro: Alert and oriented x3. No focal neuro deficits. Psych: Normal affect and mood Objective Labs 01/01/25 05:49 01/01/25 05:49 Labs: Laboratory Results - last 24 hr 01/01/25 05:49 WBC 9.1 RBC 4.49 L Hgb 12.4 L Hct 37.6 L MCV 84 MCH 27.6 MCHC 33.0 RDW Std Deviation 43.8 Plt Count 305 Neut % (Auto) 77 Lymph % (Auto) 12 [place] % (Auto) 8 Eos % (Auto) 2 Baso % (Auto) 1 Neut # (Auto) 7.0 Lymph # (Auto) 1.0 [place] # (Auto) 0.8 Eos # (Auto) 0.2 Baso # (Auto) 0.1 Immature Gran # (Auto) 0.03 H Absolute Nucleated RBC 0.00 Immature Gran % 0 Nucleated RBC % 0 Sodium 141 Potassium 4.2 Chloride 109 H Carbon Dioxide 25.8 Anion Gap 6 L BUN 10 Creatinine 1.1 Estim Creat Clear Calc 57.1 L eGFR > 60 BUN/Creatinine Ratio 9 L Glucose 100 D Calculated Osmolality 280 Calcium 8.7 Corrected Calcium 9.2 Phosphorus 2.3 L Magnesium 2.0 Total Bilirubin 0.4 AST 20 ALT 22 Alkaline Phosphatase 65 Total Protein 6.1 Albumin 3.4 Globulin 2.7 Albumin/Globulin Ratio 1.3 Assessment & Plan A&P Narrative A 79-year-old male with a past medical history of BPH on Flomax, history of urinary retention and hydronephrosis previously followed by urology in [place], and a rectal adenoma,Anxiety, presented to the emergency department for further evaluation of UTI not resolving to treatment as outpatient. Patient was admitted to the hospital and was started on IV antibiotics and had mild acute kidney injury on admission. Patient did develop atrial flutter with variable block with a rate of 120 bpm and later on was in atrial fibrillation. Cardiology was consulted for further evaluation. Patient denies any chest pain chest pressure shortness of breath orthopnea PND dizziness or leg swelling. His main complaints have been the urinary complaints. Denied having any previous heart disease. He was evaluated more than 5 years ago for an abnormal EKG and he had complete testing done including an echo and stress test at that point of time which were normal. He did not follow-up with cardiology since then Assessment and plan 1. New onset atrial flutter with variable plaques/atrial fibrillation 2. SIRS secondary to UTI 3. Acute kidney injury 4. BPH 5. Complicated UTI 6. History of urinary retention with hydronephrosis follows with urology in [place] Patient has new onset paroxysmal atrial flutter/fibrillation. Patient has never been diagnosed with A-fib or atrial flutter. Patient was started on amiodarone bolus and drip by the primary team and rate is well-controlled right now at 70 to 80 bpm on amiodarone drip but he is still in atrial fibrillation with intermittent atrial flutter. Recommend to continue the amiodarone drip as per the protocol. If patient blood pressure is permissible during recommend to start metoprolol XL for rate control. If blood pressure is low normal or hypotensive secondary to the complicated UTI answers then patient can be transition to oral amiodarone 200 mg twice daily. Continue heparin drip for anticoagulation and patient should be transition to oral Eliquis 5 mg twice daily if no further procedures are planned. Discussed in detail about the atrial fibrillation with the and patient at the bedside. Echocardiogram showed normal LV function and RV function EF of 60 to 65% without major valvular abnormalities. Does have left atrial dilatation. 01/01/2025: Telemetry reviewed and the patient continues to be in atrial fibrillation but heart rate is better controlled between 60-100 bpm even with walking but still continues to be in atrial flutter with variable block even after the amiodarone drip, oral amiodarone as well as metoprolol. Given his continuous atrial flutter with variable block patient was recommended HUE and cardioversion. Patient denies any kind of swallowing problems or any kind of esophageal interventions or previous surgeries. Patient denies any kind of gastric ulcers bleeding and any other hematemesis or hematochezia. Patient denies any issues with anesthesia previously. Patient explained all the risks, benefits and alternatives of HUE including the risk of perforation, bleeding, respiratory failure secondary to sedation, injury to teeth gums esophagus and stomach. Patient understands all risks and benefits and provided consent for the procedure. We will keep him n.p.o. overnight and plan for HUE in the morning. HUE completed on 01/01/2025 showed no evidence of any NINA thrombus. Bubble study was negative for PFO or ASD. Normal LV and RV function. Patient was successfully cardioverted with 1 x 75 J shock with which he converted to normal sinus rhythm but EKG after the procedure showed that patient was sinus bradycardia and decrease the amiodarone to 200 mg once daily and the metoprolol XL 25 mg once daily at the time of discharge. Patient should be discharged on Eliquis 5 mg twice daily for anticoagulation. Patient recommended to follow-up with me in the office in 7 days. Management of rest of the medical conditions as per primary team and other consultants. Thank you for the consult and allowing me to participate in the care of the patient. Cardiology will continue to follow. Brett Rojo M.D. Interventional Cardiology Time Spent With Patient Time: Total time spent is greater than 50% in coordination of care (as documented) at patient's floor/unit and/or counseling patient:
--- NOTE | 2025-01-01 14:11 | ESDS_ITS ---
<Statement entered by Toño Khanna MD - 01/01/25 17:40> I Toño Khanna MD reviewed the note and agree with the resident's assessment & plan with exceptions as below. I have personally reviewed labs, imaging, home meds/prior records, examined the patient, formulated and discussed management plan with the IM team. A 79-year-old male admitted for UTI and new onset atrial fibrillation/flutter. Currently rate is better controlled however remained in atrial flutter continue Eliquis and continue amiodarone to p.o. 200 mg twice daily ,uptitrate metoprolol to 25 mg 3 times daily. Patient had HUE with cardioversion today with successful conversion to normal sinus rhythm. Will switch to p.o. third- generation cephalosporin for UTI to complete a total of 7 days. Planned Discharge Date 01/01/25 DS: Providers Provider Date of admission: 12/27/24 20:25 Primary care physician: Janeth Meadows MD Admitting Provider: Mike Gould MD Attending Provider on Admission: Toño Khanna MD Consults: 12/28/24 09:09 Consult to Cardiology Routine Comment: New onset A-FLUTTER Consulting Provider: Brett Rojo Attending Provider on DC: Toño Khanna MD Discharging Provider: Toño Khanna MD DS: Diagnosis Problem List Completed Was Problem List Reviewed/Reconciled?: Yes Hospital Course Hospital Course Hospital course: This is a 79-year-old male with PMHx of urinary incontinence requiring chronic straight cath, who presented to the ED due to fevers and chills, admitted for E. coli UTI and completed course 2 days of ZOSYN, followed by 3 days of CEFTRIAXONE. His symptoms have resolved, remained afebrile, without leukocytosis. Additionally, patient present with new onset atrial flutter seen on EKG, initially with RVR, otherwise asymptomatic without dizziness, chest pain or lightheadedness. He completed AMIODARONE drip and transition to oral with addition of METOPROLOL. However heart rate remained elevated, repeat EKG showed atrial flutter. He underwent successful cardioversion with improvement in heart rate. Will discharge on AMIODARONE daily and METOPROLOL daily at the dose listed below. IMAGE FINDINGS: * Abdominal CT showed bilateral nonobstructive renal calculi, left urinary tract infection, cystitis pattern. * CXR showed no pneumonia or pulmonary edema. * Echocardiogram showed EF 55-60%, mild LVH, normal LV size/function, diastolic dysfunction, undetermined 2/2 A-fib, normal RV size and function, RVSP 25 mmHg, severe left atrial dilation, normal right atrium, mild MAC, mild MR, trace AI, trace PI, dilated IVC, trace to small pericardial effusion without evidence of cardiac tamponade. PATIENT INSTRUCTIONS: * Follow-up with PCP within 1-2 weeks of discharge. * Follow-up with Cardiology, Dr. Rojo, withing 1-2 weeks of discharge. * Continue taking AMIODARONE 200 mg daily. * Continue taking METOPROLOL XL 25 mg daily. * Continue taking CEFUROXIME ANTIBIOTICS 500 mg twice daily for 2 more days. * Return to Emergency Room if symptoms persist, worsen, or new symptoms develop. * Continue taking medications as prescribed below. ADMISSION DIAGNOSES: New onset atrial flutter S/p successful cardioversion Complicated E. coli UTI, catheter associated BPH Acute Kidney injury (resolved) Electrolyte derangement Case was discussed with attending physician and senior resident. Markos Calloway DO PGYI Time Spent with Patient Time attestation: Total time spent providing and/or coordinating discharge services: Time spent: Greater than 30 minutes Exam Vital Signs Temp Pulse Resp BP Pulse Ox O2 Del Method O2 Flow Rate 98.0 F 45 L 20 108/68 96 Nasal Cannula 3 01/01/25 11:39 01/01/25 12:45 01/01/25 12:45 01/01/25 12:45 01/01/25 12:45 01/01/25 12:45 01/01/25 12:45 Narrative Exam General: Alert and oriented x3. In no acute distress. Eyes: Pupils are equal and reactive to light bilaterally. HEENT: Atraumatic, normocephalic. No JVD noted. Mucosa moist. Cardiovascular: Normal S1 and S2. Irregularly irregular. No murmurs appreciated. No peripheral pitting edema noted. Respiratory: No respiratory distress. Lungs are clear to auscultation bilaterally. No wheezing or crackles heard. Abdomen: Soft, nontender, nondistended. Skin: No rash. Warm to touch. Musculoskeletal: No gross injuries. Able to move all 4 extremities. Neuro: Alert and oriented x3. No focal neuro deficits. Psych: Normal affect and mood Discharge Plan Plan Patient Disposition: HOME (Self Care) Patient condition on transfer: Stable Care Plan Goals: * Follow-up with PCP within 1-2 weeks of discharge. * Follow-up with Cardiology, Dr. Rojo, withing 1-2 weeks of discharge. * Continue taking AMIODARONE 200 mg daily. * Continue taking METOPROLOL XL 25 mg daily. * Continue taking CEFUROXIME ANTIBIOTICS 500 mg twice daily for 2 more days. * Return to Emergency Room if symptoms persist, worsen, or new symptoms develop. * Continue taking medications as prescribed below. Prescriptions/Referrals Prescriptions/Med Rec: New metoprolol succinate 25 mg capsule,diegoinkle,ER 24hr 25 mg PO QDAY Qty: 30 0RF amiodarone 200 mg tablet 200 mg PO QDAY Qty: 30 0RF cefuroxime axetil 250 mg tablet 500 mg PO Q12H Qty: 4 0RF Continued tamsulosin 0.4 mg capsule 0.4 mg PO QDAY Patient Comments: TAKE 1 CAPSULE BY MOUTH EVERY DAY Referrals: Brett Rojo MD [Physician] - Janeth Meadows MD [Primary Care Provider] - Patient/Caregiver Discharge Instructions Education Materials: Understanding Urinary Tract ..., Medicines for Heart Disease, ED Atrial Flutter Print Language: Ma[place] Stand Alone Forms: Paty Award Info., Patient Portal Info Letter Discharge Order Discharge Orders: Discharge (Routine); Ordered 01/01/25 Ordered By: Markos Calloway Quality Discharge Quality Measures VTE prophylaxis
--- NOTE | 2025-01-01 15:20 | PC.SS ---
Patient to be discharged home today
--- NOTE | 2025-01-01 21:10 | PD.RESPRO ---
Documentation for date of: 01/01/25 Exam Vital Signs Temp Pulse Resp BP Pulse Ox O2 Del Method O2 Flow Rate 97.1 F 61 21 H 90/59 L 94 L Room Air 2 01/01/25 16:03 01/01/25 16:03 01/01/25 16:03 01/01/25 16:03 01/01/25 16:03 01/01/25 16:03 01/01/25 14:37 Objective Labs 01/01/25 05:49 01/01/25 05:49 Labs: Laboratory Results - last 24 hr 01/01/25 05:49 WBC 9.1 RBC 4.49 L Hgb 12.4 L Hct 37.6 L MCV 84 MCH 27.6 MCHC 33.0 RDW Std Deviation 43.8 Plt Count 305 Neut % (Auto) 77 Lymph % (Auto) 12 [place] % (Auto) 8 Eos % (Auto) 2 Baso % (Auto) 1 Neut # (Auto) 7.0 Lymph # (Auto) 1.0 [place] # (Auto) 0.8 Eos # (Auto) 0.2 Baso # (Auto) 0.1 Immature Gran # (Auto) 0.03 H Absolute Nucleated RBC 0.00 Immature Gran % 0 Nucleated RBC % 0 Sodium 141 Potassium 4.2 Chloride 109 H Carbon Dioxide 25.8 Anion Gap 6 L BUN 10 Creatinine 1.1 Estim Creat Clear Calc 57.1 L eGFR > 60 BUN/Creatinine Ratio 9 L Glucose 100 D Calculated Osmolality 280 Calcium 8.7 Corrected Calcium 9.2 Phosphorus 2.3 L Magnesium 2.0 Total Bilirubin 0.4 AST 20 ALT 22 Alkaline Phosphatase 65 Total Protein 6.1 Albumin 3.4 Globulin 2.7 Albumin/Globulin Ratio 1.3 Quality Measures Quality Measures VTE prophylaxis
== END 2025-01-01 17:20 | disposition home or self-care (01) | DRG 699 ==
LOC: SERX 21:06 → S3SX 12-28 06:06 → SERHOLD 12-28 06:06 → S3SX 12-29 11:35 → S3NX 12-31 03:59
PROVIDERS: Internal Medicine Cardiovascular Disease; Nurse Practitioner Primary Care; Student in an Organized Health Care Education/Training Program; Admitting Provider Internal Medicine; Emergency Provider Emergency Medicine; PCP Family Medicine; Visit Provider Student in an Organized Health Care Education/Training Program
PROC: 5A2204Z Restoration of Cardiac Rhythm, Single (ICD-10-PCS; CPT 93312; principal; 2025-01-01 11:30)
DX: T83.518A Infection and inflammatory reaction due to other urinary catheter, initial encounter (principal); I48.92 Unspecified atrial flutter; N17.9 Acute kidney failure, unspecified; N30.90 Cystitis, unspecified without hematuria; N20.0 Calculus of kidney; Z66 Do not resuscitate; B96.20 Unspecified Escherichia coli [E. coli] as the cause of diseases classified elsewhere; I48.0 Paroxysmal atrial fibrillation; I49.3 Ventricular premature depolarization; N40.1 Benign prostatic hyperplasia with lower urinary tract symptoms; R33.8 Other retention of urine; Z79.01 Long term (current) use of anticoagulants; Z79.899 Other long term (current) drug therapy; Y84.6 Urinary catheterization as the cause of abnormal reaction of the patient, or of later complication, without mention of misadventure at the time of the procedure
CPT/HCPCS: 36415; 71045; 74176; 80053; 80061; 81001; 83605; 83690; 83735; 84100; 84145; 84443; 85025; 87040; 87086; 87811; 93005; 93225; 93306; 93312; 96365; 96367; 99152; 99291; J0283; J0696; J1644; J2250; J2543; J3010; J3475; J7030; J7120; J7999; A9270

== ENCOUNTER → 2024-12-27 | Outpatient (CLI) | payer MEDICARE, BC, SELFPAY | END | disposition home or self-care (01) | PROVIDERS: PCP Student in an Organized Health Care Education/Training Program; Referring Provider Student in an Organized Health Care Education/Training Program; Visit Provider Student in an Organized Health Care Education/Training Program | DX: N39.0 Urinary tract infection, site not specified (principal) | CPT/HCPCS: 87077; 87086; 87186 ==

== ENCOUNTER 2025-04-27 10:29 | Emergency (ER) | payer MEDICARE, BC, SELFPAY ==
[2025-04-27 10:30] VITALS: BMI 24.3
[2025-04-27 10:37] VITALS: BP 144/78; PULSE 41; RESP 18; TEMP 36.6; O2SAT 98
--- NOTE | 2025-04-27 10:44 | EKG_ITS ---
[facility] Test Date: 2025-04-27 Pat Name: SACHIN MANN Department: Room: - Gender: Male [employer]: : 1945 Requested By: Jarad Sims Order Number: [id number] Reading MD: Jarad Sims Measurements Intervals [place] Rate: 39 P: -59 NE: 171 QRS: -39 QRSD: 105 T: 39 QT: 519 QTc: 423 Interpretive Statements SINUS BRADYCARDIA LEFT AXIS DEVIATION [QRS AXIS < -30] CRITICAL TEST RESULT Compared to ECG 01/01/2025 13:07:49 Left-axis deviation now present First degree AV block no longer present T-wave abnormality no longer present Prolonged QT interval no longer present /store/S0/[id number].pdf
--- NOTE | 2025-04-27 10:44 | XR_ITS ---
Examination: Duplex scan of the lower extremity, unilateral right Date and time of exam: April 27, 2024, 1106 hours INDICATIONS: Right calf swelling and pain beginning 4 days ago, patient is anticoagulated COMPARISON: December 16, 2020 Technique: Duplex scan of the extremity veins using B-mode/grayscale imaging and Doppler spectral analysis and color flow Attention is directed to internal echogenicity, compression and augmentation involving these veins, color flow assessment, spectral analysis Findings: Positive for nonocclusive thrombus in the right peroneal vein Remaining deep venous system open IMPRESSION: Positive for nonocclusive thrombus in the right peroneal vein
--- NOTE | 2025-04-27 10:45 | EDRME_ITS ---
Rapid Medical Screening Exam [facility] Arrival date/time: 04/27/25 10:29 79-year-old male with a history of DVT, prostate problems, on blood thinners presents to the emergency room with a chief complaint of pain and swelling to his right lower extremity x 2 days. I have greeted and performed a focused initial assessment of this patient. A comprehensive ED assessment and evaluation of the patient, analysis of all test results, and completion of the medical decision making process will be conducted by additional ED providers. Chief Complaint: General Adult/Misc Complain Time Seen by Provider: 04/27/25 10:36 Vital signs: Vital Signs Temperature 98 F 04/27/25 10:37 Pulse Rate 41 L 04/27/25 10:37 Respiratory Rate 18 04/27/25 10:37 Blood Pressure 144/78 H 04/27/25 10:37 Pulse Oximetry (%) 98 04/27/25 10:37 Oxygen Delivery Method Room Air 04/27/25 10:37 Vital signs reviewed by provider: Yes Exam: Mild right lower extremity swelling, positive Homans' sign, no erythema. Clear bilateral lung sounds, no wheezing. weak and regular rhythm. Patient is bradycardic at 41 Clinical Impression: Bradycardia/DVT/STEMI/NSTEMI
[2025-04-27 11:07] LABS: Basophils # (Auto) 0.1 Thou/mm3 (0.0-0.2); Basophils % (Auto) 1 % (0-2.5); Eosinophils # (Auto) 0.2 Thou/mm3 (0.0-0.5); Eosinophils % (Auto) 3 % (0-10); Hematocrit 45.6 % (41.0-53.0); Hemoglobin 14.6 g/dL (13.5-16.0); Immature Granulocytes Auto 0.01 Thou/mm3 (0.00-0.00); Lymphocytes # (Auto) 1.2 Thou/mm3 (1.0-4.8); Lymphocytes % (Auto) 22 % (10-50); Mean Corpuscular HGB Conc 32.0 g/dl (31.0-37.0); Mean Corpuscular Hemoglobin 28.5 pg (25.0-35.0); Mean Corpuscular Volume 89 fL (80-100); Monocytes # (Auto) 0.6 Thou/mm3 (0.0-0.8); Monocytes % (Auto) 10 % (0-12); Neutrophils # (Auto) 3.5 Thou/mm3 (1.8-7.7); Neutrophils % (Auto) 64 % (37-80); Nucleated Red Blood Cell # 0.00 Thou/mm3 (0.00-0.00); Nucleated Red Blood Cell % 0 /100 WBC (0); Platelet Count 242 Thou/mm3 (140-440); RDW Standard Deviation 45.7 fL (35.1-43.9); Red Blood Count 5.13 Miln/mm3 (4.50-5.90); White Blood Count 5.5 Thou/mm3 (3.8-10.6)
[2025-04-27 11:21] LABS: D-Dimer 691 ng/mL (<600)
[2025-04-27 11:25] LABS: INR 1.1 (0.9-1.3); Partial Thromboplastin Time 28.4 Seconds (22.0-36.0); Prothrombin Time 11.7 Seconds (9.0-12.2)
[2025-04-27 11:28] LABS: Alanine Aminotransferase 12 U/L (10-49); Albumin, Serum 4.2 gm/dL (3.4-4.8); Albumin/Globulin Ratio 1.6 (1.2-2.2); Alkaline Phosphatase 75 U/L (46-116); Anion Gap 8 (7-16); Aspartate Amino Transferase 19 U/L (0-34); B-Type Natriuretic Peptide 118 pg/mL (0-100); BUN/Creatinine Ratio 10 Ratio (12-20); Bilirubin,Total 0.4 mg/dL (0.3-1.2); Blood Urea Nitrogen 10 mg/dL (9-23); Calcium 9.2 mg/dL (8.3-10.6); Calcium (Corrected) 9.2 mg/dL (8.5-10.1); Carbon Dioxide 28.0 mMol/L (20.0-31.0); Chloride 107 mMol/L (98-107); Creatinine (Component) 1.0 mg/dL (0.6-1.3); Estimated Creatinine Clearance 62.9 mL/min (>60); Globulin 2.6 gm/dL (2.3-3.5); Glucose 104 mg/dL (74-106); LDH (Lactate Dehydrogenase) 163 U/L (120-246); Magnesium 2.0 mg/dL (1.6-2.6); Osmolality,Calculated 283 (275-295); Potassium 4.4 mMol/L (3.4-5.1); Sodium 143 mMol/L (136-145); Total Protein 6.8 gm/dL (5.7-8.2); Troponin I < 0.002 ng/mL (0.0-0.045); eGFR > 60 See Note
[2025-04-27 11:33] LABS: Collection Type, Urine Clean Catch; Squamous Epithelial Cell,Urine 0 /hpf (0-5)
[2025-04-27 11:41] LABS: Bilirubin,Urine Negative (Negative); Blood,Urine Negative (Negative); Clarity,Urine Clear (Clear/Hazy); Color,Urine Lt-Yellow (Lt Yel-Yel); Glucose, Urine Negative (Negative); Ketones,Urine Negative (Negative); Leukocyte Esterase,Urine Positive (Negative); Nitrite,Urine Negative (Negative); PH,Urine 6.0 (5.0-7.0); Protein,Urine Negative (Neg - Trace); RBC,Urine 5 /hpf (0-3); Specific Gravity,Urine 1.012 (1.001-1.035); Urobilinogen,Urine Negative mg/dL (0.0-1.0); WBC,Urine 50 /hpf (0-5)
[2025-04-27 11:51] LABS: Culture Indicated,Urine Yes
--- NOTE | 2025-04-27 14:30 | PD.EDEXREM ---
ED Extremity Problem RME/HPI General Chief complaint: General Adult/Misc Complain Stated complaint: I THINK I HAVE A BLOOD CLOT ON MY R LEG Time Seen by Provider: 04/27/25 10:36 Source: patient and family (Swelling x 3 days) Arrival date/time: 04/27/25 10:29 Mode of arrival: ambulatory Limitations: no limitations CHIVOE / HPI Complaint: extremity swelling Onset (ago): week(s) (1) Consistency: intermittent Location: right Severity scale (1-10): 2 Quality: aching Radiation: none Relieving factors: nothing Exacerbating factors: nothing (79-year-old male coming to the emergency department with 1 week history of increasing swelling of his right leg with pain to the thigh.) Associated symptoms: denies other symptoms Context: other (No recent travel, patient states has a history of DVT.) RME / HPI Narrative: 04/27/25 10:29 79-year-old male with a history of DVT, prostate problems, on blood thinners presents to the emergency room with a chief complaint of pain and swelling to his right lower extremity x 2 days. I have greeted and performed a focused initial assessment of this patient. A comprehensive ED assessment and evaluation of the patient, analysis of all test results, and completion of the medical decision making process will be conducted by additional ED providers. Exam: Mild right lower extremity swelling, positive Homans' sign, no erythema. Clear bilateral lung sounds, no wheezing. weak and regular rhythm. Patient is bradycardic at 42 Impression: Bradycardia/DVT/STEMI/NSTEMI Related Data Home Medications ?Medication ?Instructions ?Recorded ?Confirmed tamsulosin 0.4 mg capsule 0.4 mg PO QDAY 12/27/24 12/27/24 Previous Rx's ?Medication ?Instructions ?Recorded amiodarone 200 mg tablet 200 mg PO QDAY #30 tabs 01/01/25 apixaban 5 mg tablet (Eliquis) 5 mg PO BID #60 tabs 01/01/25 cefuroxime axetil 250 mg tablet 500 mg (2 x 250 mg) PO Q12H #4 tabs 01/01/25 metoprolol succinate 25 mg capsule 25 mg PO QDAY #30 ea 01/01/25 sprinkle, ext. release 24 hr Allergies Allergy/AdvReac Type Severity Reaction Status Date / Time sulfamethoxazole (From Allergy Severe Shakiness Verified 04/27/25 10:34 Bactrim) trimethoprim (From Bactrim) Allergy Severe Shakiness Verified 04/27/25 10:34 Review of Systems Review of Systems Systems Reviewed: All systems reviewed, normal except as documented Constitutional Constitutional: Reports system reviewed and no additional complaints, except as documented and Denies fever(s) Eyes Eyes: Reports system reviewed and no additional complaints, except as documented ENT Ears, Nose, Mouth, and Throat: Reports system reviewed and no additional complaints, except as documented Cardiovascular Cardiovascular: Reports system reviewed and no additional complaints, except as documented, Denies chest pain and Reports dyspnea Respiratory Respiratory: Reports system reviewed and no additional complaints, except as documented, Reports dyspnea and Denies wheezing Gastrointestinal Gastrointestinal: Reports system reviewed and no additional complaints, except as documented, Denies abdominal pain, Denies nausea and Denies vomiting Genitourinary Genitourinary: Reports system reviewed and no additional complaints, except as documented and Denies dysuria Musculoskeletal Musculoskeletal: Reports system reviewed and no additional complaints, except as documented Integumentary/Breasts Skin/Breast: Reports system reviewed and no additional complaints, except as documented and Denies rash Neurologic Neurologic: Reports system reviewed and no additional complaints, except as documented Psychiatric Psychiatric: Reports system reviewed and no additional complaints, except as documented Allergic/Immunologic Allergic/Immunologic: Denies wheezing Past Medical History Past Medical History NEUROLOGIC: Negative Neurological Disorders or Seizures CARDIAC: Positive Deep Vein Thrombosis; Negative Cardiac Disorders or Congestive Heart Failure RESPIRATORY: Negative Chronic Obstructive Pulmonary Disease (COPD) or Asthma GASTROINTESTINAL: Negative Gastrointestinal Disorders GENITOURINARY: Positive Genitourinary Disorders (URINARY INCONTINENCE); Negative Renal Disease MUSCULOSKELETAL: Negative Musculoskeletal Disorders ENDOCRINE: Negative Endocrine Disorders, Diabetes Mellitus Type 1 or Diabetes Mellitus Type 2 HEMATOLOGIC: Negative Blood Disorders or Sickle Cell Disease OTHER HISTORY: Negative Blood Transfusions, Blood Transfusion Reaction, Anesthesia Reactions or Cancer Social History SMOKING STATUS: Never smoker SUBSTANCE USE: does not use ED Exam Narrative Physical exam: Patient in no acute distress. General Limitations: Present no limitations General appearance: Present alert and in no apparent distress Head Head exam: Present atraumatic Eye Eye exam: Present normal appearance, PERRL and EOMI ENT ENT exam: Present normal exam, normal oropharynx and mucous membranes moist Neck Neck exam: Present normal inspection, full ROM and trachea midline Chest Chest inspection: Present normal inspection and symmetric chest wall rise Respiratory Respiratory exam: Present normal lung sounds bilaterally Cardiovascular Cardiovascular exam: Present regular rate, normal rhythm and normal heart sounds Abdominal Exam Abdominal exam: Present soft and normal bowel sounds Back Exam Back exam: Present normal inspection and full ROM Neurological Exam Neurological exam: Present alert, oriented X3 and CN II-XII intact Psychiatric Psychiatric exam: Present normal affect and normal mood Skin Skin exam: Present warm, dry, intact, normal color and other (Swelling right lower extremity, in the thigh. No redness. No vascular changes. Distal pulses are equal bilaterally.) Course Quality Measures none Orders Category Date Time Status EKG (ED ONLY) *Do not use* NOW Care 04/27/25 10:44 Completed EKG (ED Only) Stat Exams 04/27/25 10:44 Draft US venous doppler LE RT Stat Exams 04/27/25 10:44 Completed B-Type Natriuretic Peptide Stat Lab 04/27/25 10:58 Completed CBC Stat Lab 04/27/25 10:58 Completed Comprehensive Metabolic Panel Stat Lab 04/27/25 10:58 Completed D-Dimer Stat Lab 04/27/25 10:58 Completed LDH (Lactate Dehydrogenase) Stat Lab 04/27/25 10:58 Completed Magnesium Stat Lab 04/27/25 10:58 Completed Partial Thromboplastin Time Stat Lab 04/27/25 10:58 Completed Prothrombin Time with INR Stat Lab 04/27/25 10:58 Completed Troponin I Stat Lab 04/27/25 10:58 Completed Urinalysis, C/S if Indicated Stat Lab 04/27/25 11:16 Completed Urine Culture Stat Lab 04/27/25 11:16 Received Reevaluation(s) Reevaluation #1: Patient no acute distress sitting on the bed. Time: 14:36 Vital Signs Vital signs: Vital Signs Temperature 98 F 04/27/25 10:37 Pulse Rate 41 L 04/27/25 10:37 Respiratory Rate 18 04/27/25 10:37 Blood Pressure 144/78 H 04/27/25 10:37 Pulse Oximetry (%) 98 04/27/25 10:37 Oxygen Delivery Method Room Air 04/27/25 10:37 Extremity Problem MDM Narrative MDM Narrative:: 79-year-old male coming in with 1 week history of lower extremity swelling in the right leg. The patient states that he was seen a few weeks ago and thought he had a cellulitis and was treated with doxycycline. Patient states that he still having swelling in the right thigh that is why he came to the emergency department. Ultrasound shows that he has a DVT. The patient is on 5 mg twice a day. Neurovascularly intact. Patient data External records reviewed:: [facility] previous records (Previous records by Dr. Daniel who stated that the patient Eliquis dosing at 2.5 mg fOr atrial fibrillation.) Clinical information provided by:: patient and family (Swelling is improved per the ) Social determinants that could affect healthcare access:: none Patient has the following chronic illnesses:: Atrial fibrillation, hypertension How is presenting disease/condition affected by chronic disease/condition?: exacerbated by Evaluation data The following diagnostics were reviewed and interpreted by me:: lab results and radiology exam(s) Lab and/or radiology exams considered but not ordered:: Ultrasound right lower extremity. Interpretation Summary: Findings: Positive for nonocclusive thrombus in the right peroneal vein Remaining deep venous system open IMPRESSION: Positive for nonocclusive thrombus in the right peroneal vein Dictated By: Ant Alvares MD Signed By: <Electronically signed by Ant Alvares MD in OV> 04/27/25 1156 Medications / Prescriptions Medications or Prescriptions considered but not ordered:: None Medication administrations:: As above Consultations Consultation(s) initiated? (list below): Yes Consultation #1 (Physician, Specialty, Details): Cardiology, Dr Washington, discussed Eliquis dosing for possible increase in dose. Of Eliquis. He will come see the patient here in Emergency Department Time: 14:31 Consultation #2 (Physician, Specialty, Details): Discussed with cardiology on-call and at this time he will come evaluate the patient. Time: 17:00 Consultation #3 (Physician, Specialty, Details): Discussed with cardiology who said he was going to come see the patient Emergency Department is still pending. Nurses report to me that the x ray developing machine operator did come see the patient and the patient left. Diagnosis Most likely diagnosis given after review of the tests above:: DVT. Already anticoagulated. Admission Indicated Admission indicated?: not indicated Admission Request Was there a request for admission?: No Disposition Plan Disposition Plan: other (specify) Discharge Plan Plan Patient Disposition: Elopement Prescriptions/Referrals Prescriptions/Med Rec: No Action tamsulosin 0.4 mg capsule 0.4 mg PO QDAY Patient Comments: TAKE 1 CAPSULE BY MOUTH EVERY DAY metoprolol succinate 25 mg capsule,sprinkle,ER 24hr 25 mg PO QDAY Qty: 30 0RF amiodarone 200 mg tablet 200 mg PO QDAY Qty: 30 0RF cefuroxime axetil 250 mg tablet 500 mg PO Q12H Qty: 4 0RF Eliquis 5 mg tablet 5 mg PO BID Qty: 60 0RF Referrals: Janeth Meadows MD [Primary Care Provider, Family Practice] - In 1 week Problem List Clinical Impression: DVT (deep venous thrombosis), Eloped from emergency department Patient/Caregiver Discharge Instructions Print Language: Mohawk
--- NOTE | 2025-04-27 22:21 | PD.RESCONSUL ---
HPI Data of Consult Primary Care Provider: Janeth Meadows MD Consult Narrative History of present illness: Patient is a 79 year old male with PMH of afib on Eliquis, anxiety, BPH on tamsulosin, and history of anorectal mass s/p biopsy adenoma who presents to ED for worsening right leg pain and swelling for the past 3 weeks. Has pain with ambulation, improves with rest. Reports that he did drive for 3-4 hours yesterday to go [place] the mountains but symptoms preceded this. Denies any long travel or recent surgeries. Denies taking any supplements. In ED BP was 144/78, HR 41. Hgb 14.6, PT 11.7, INR 1.1, PTT 28.4, D-dimer 691. BNP 118. BMP was unremarkable. EKG showed sinus bradycardia with HR 39. Venous doppler study showed nonocclusive thrombus in the right peroneal vein despite being on Eliquis 5 mg BID since previous admission in December 2024 (found to be in afib RVR in setting of sepsis). Cardiology was consulted as patient follows Dr. Rojo outpatient. Recommended to double dose of Eliquis for 7 days and then return to regular dose of 5 mg BID. Patient has upcoming appointment next week and will follow up. Past Medical History: as above Family History: No known family history of cardiac disease Surgical History: anorectal mass biopsy (2023) Social History: Denies cigarette use, denies alcohol use, denies illicit substances although patient does endorse taking THC Gummies every 1 to 2 days Current Medications: amiodarone 100 mg daily, Eliquis 5 mg BID, metoprolol XL 25 mg daily, tamulosin 0.4 mg daily Allergies: No known drug allergies cc:: cc: Exam Vital Signs Temp Pulse Resp BP Pulse Ox O2 Del Method 98 F 41 L 18 144/78 H 98 Room Air 04/27/25 10:37 04/27/25 10:37 04/27/25 10:37 04/27/25 10:37 04/27/25 10:37 04/27/25 10:37 Narrative Exam Physical Exam General: Awake and in no acute distress. Conversational and non-toxic appearing. HEENT: Normocephalic, atraumatic, mucous membranes moist. Heart: Regular rate and rhythm, normal S1 and S2, no murmurs. Lungs: Clear to auscultation with no wheezing or crackles. Abdomen: Soft, nondistended, nontender, positive bowel sounds. No guarding or rebound tenderness. Neurologic: Alert and oriented x3, no gross neurological deficit, and patient able to move all 4 extremities. Extremities: No edema. Mild tenderness of posterior calf. Skin: No rash or ecchymoses. Results Labs 04/27/25 10:58 04/27/25 10:58 Labs: Short CBC 04/27/25 Range/Units 10:58 WBC 5.5 (3.8-10.6) Thou/mm3 Hgb 14.6 (13.5-16.0) g/dL Hct 45.6 (41.0-53.0) % Plt Count 242 (140-440) Thou/mm3 BMP 04/27/25 10:58 Sodium 143 Potassium 4.4 Chloride 107 Carbon Dioxide 28.0 BUN 10 Creatinine 1.0 Glucose 104 Calcium 9.2 Cardiac Enzymes 04/27/25 Range/Units 10:58 Troponin I < 0.002 (0.0-0.045) ng/mL Liver Function 04/27/25 Range/Units 10:58 Total Bilirubin 0.4 (0.3-1.2) mg/dL AST 19 (0-34) U/L ALT 12 (10-49) U/L Alkaline Phosphatase 75 (46-116) U/L Albumin 4.2 (3.4-4.8) gm/dL Urine 04/27/25 Range/Units 11:16 Urine Color Lt-Yellow (Lt Yel-Yel) Urine Clarity Clear (Clear/Hazy) Urine pH 6.0 (5.0-7.0) Ur Specific [place] 1.012 (1.001-1.035) Urine Protein Negative (Neg - Trace) Urine Glucose (UA) Negative (Negative) Quality Measures Quality Measures none Advance care planning discussed with:: patient Medications Home Medications and Allergies Home Medications ?Medication ?Instructions ?Recorded ?Confirmed ?Type tamsulosin 0.4 mg capsule 0.4 mg PO QDAY 12/27/24 12/27/24 History Allergies Allergy/AdvReac Type Severity Reaction Status Date / Time sulfamethoxazole (From Allergy Severe Shakiness Verified 04/27/25 10:34 Bactrim) trimethoprim (From Bactrim) Allergy Severe Shakiness Verified 04/27/25 10:34 Assessment & Plan Plan Patient is a 79 year old male with PMH of afib on Eliquis, anxiety, BPH on tamsulosin, and history of anorectal mass s/p biopsy adenoma who presents to ED for worsening right leg pain and swelling for the past 3 weeks, found to have nonocclusive DVT of right peroneal vein. #Nonocclusive DVT of right peroneal vein Presented with worsening right calf swelling and pain for the past 3 weeks. Patient has been on Eliquis 5 mg BID since December 2024 when was found to be in afib with RVR in setting of sepsis. Per review of records, was previously on Plavix 75 mg in the past but developed hematuria. PT 11.7, INR 1.1, PTT 28.4, D-dimer 691. Venous doppler of lower extremities showed nonocclusive DVT of right peroneal vein. Plan: - Instructed patient to double Eliquis dose to 10 mg BID for 7 days, then resume regular Eliquis 5 mg BID dose. Instructed patient to monitor for any signs of bleeding. - Follow up in clinic next week #Hx atrial flutter/fib with RVR s/p cardioversion in December 2024 on Eliquis #Bradycardia Per patient and his , patient has had low HR at home in 40s-50s since started on metoprolol XL 25 mg daily and amiodarone 200 mg daily in December 2024. Patient has been self reducing medications every few weeks in attempt to bring up his HR. Endorses some fatigue but denies any dizziness or falls. EKG showed sinus bradycardia, HR 39. QTc 423. Plan: - Discontinue metoprolol XL 25 mg daily - Continue amiodarone 100 mg daily - half tablet of amiodarone 200 mg daily - Instructed patient to monitor HR at home for any changes - Follow up in clinic next week or 7 days Thank you for your consultation, please do not hesitate to reach out if you have any question or concern Patient plan of care was discussed with the attending physician, Dr. Rojo. Nikki Shah, PGY-1 Attending Provider Attestation/Addendum I have personally seen and examined the patient separately on the above date of service and discussed the plan of care with the resident. I reviewed the resident Dr. Nikki Shah consultation progress note and agree with the resident findings and plan in the note above and have also edited the documentation to reflect my findings and plan. Brett Rojo M.D. Interventional Cardiology
== END 2025-04-27 18:40 | disposition left against medical advice (07) ==
LOC: SERX 11:03
PROVIDERS: Emergency Provider Nurse Practitioner Family; PCP Family Medicine
DX: I82.451 Acute embolism and thrombosis of right peroneal vein (principal); Z53.29 Procedure and treatment not carried out because of patient's decision for other reasons
CPT/HCPCS: 36415; 80053; 81001; 83615; 83735; 83880; 84484; 85025; 85379; 85610; 85730; 87077; 87086; 87186; 93005; 93971; 99282

== ENCOUNTER → 2025-06-18 | Outpatient (CLI) | payer MEDICARE, BC, SELFPAY ==
[2025-06-18 11:03] LABS: Albumin, Serum 4.4 gm/dL (3.4-4.8); Anion Gap 8 (7-16); BUN/Creatinine Ratio 17 Ratio (12-20); Blood Urea Nitrogen 17 mg/dL (9-23); Calcium 9.5 mg/dL (8.3-10.6); Calcium (Corrected) 9.5 mg/dL (8.5-10.1); Carbon Dioxide 28.0 mMol/L (20.0-31.0); Chloride 108 mMol/L (98-107); Creatinine (Component) 1.0 mg/dL (0.6-1.3); Glucose 97 mg/dL (74-106); Osmolality,Calculated 288 (275-295); Phosphorous 2.9 mg/dL (2.4-5.1); Potassium 3.9 mMol/L (3.4-5.1); Sodium 144 mMol/L (136-145); eGFR > 60 See Note
== END | disposition home or self-care (01) ==
PROVIDERS: PCP Family Medicine; Referring Provider Nurse Practitioner Family; Visit Provider Nurse Practitioner Family
DX: N13.30 Unspecified hydronephrosis (principal); R33.9 Retention of urine, unspecified; Z78.9 Other specified health status
CPT/HCPCS: 36415; 80069; 81001; 87086